=== PATIENT | male | born 1955 | race Caucasian/White ===

== ENCOUNTER 2019-08-14 02:42 | Inpatient (IN) | payer OTHER, SELFPAY ==
[2019-08-14] VITALS (9 sets, daily range): BP systolic 124–167; BP diastolic 85–105; PULSE 58–74; RESP 17–22; TEMP 36.3–37.2; O2SAT 91–98; BMI 33.3; BMI 33.0; BMI 33.1
--- NOTE | 2019-08-14 02:55 | CT_ITS ---
STUDY: CT ABDOMEN AND PELVIS WITH CONTRAST REASON FOR EXAM: Male, 63 years old patient with abdominal pain since 1900 with elevated WBC and nausea. Patient has had a left nephrectomy as a kidney donor. RADIATION DOSAGE (If Supplied By Facility): CTDIvol = ( 17.56 ) mGy, DLP = ( 1189.45 ) mGycm TECHNIQUE: Transaxial images were obtained from the dome of the diaphragm to the symphysis pubis without oral contrast. 75 ml of IV Isovue-370 was administered. Sagittal and coronal images were reconstructed. Individualized dose optimization techniques were used for this CT. COMPARISON: Prior comparison studies are not available for review at this time. FINDINGS: The visualized lung bases are unremarkable. The visualized portions of the heart are within normal limits. Normal liver. There are surgical clips in the gallbladder fossa consistent with a prior cholecystectomy. Normal spleen. Normal pancreas. Normal bilateral adrenal glands. Normal right kidney. Left kidney is surgically absent. Normal visualized stomach. There is dilated small bowel with maximum transverse dimension of approximately 3.3 cm. Stool is visible throughout most of the colon with scattered diverticula. There appears be some abnormal thickening of the griffin of the mid and distal transverse colon as well as the splenic flexure the colon. This may be the result of a colitis. The appendix is visualized and appears normal. Normal abdominal aorta. Normal inferior vena cava. Normal retroperitoneum. Normal urinary bladder. There is enlargement of the prostate gland. Normal abdominal wall. Normal osseous structures. CT/Abdomen/Pelvis W IV Cont ONLY IMPRESSION: 1. Findings suggests small bowel obstruction. Transition occurs within the proximal small bowel. This may be related to an adhesion. The mid and distal small bowel and colon are not dilated. 2. Questionable sequela of colitis involving the transverse colon. Electronically Signed: Rosa Charles MD at 4:13 EDT , Service support ,
--- NOTE | 2019-08-14 02:58 | ED.DCSUM_ITS ---
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 Patient states that around 7:00 this past evening he developed periumbilical and left lower quadrant abdominal pain. Associated nausea. No diarrhea. No constipation. No dysuria. No trouble urinating. No prior history. No abdominal trauma. No fever. No melena. No radiation to his back. Physical Examination: Older male no acute distress vital signs are stable and afebrile. H EENT exam unremarkable. Moist membranes. Neck nontender. Lungs clear to auscultation bilaterally. Heart regular rhythm rate about 70 no murmur. Chest were nontender. Abdomen soft. Mildly distended. Periumbilical and left lower quadrant tenderness. No pulsatile mass. No masses. Positive bowel sounds. Both the right upper and right lower quadrant unremarkable. No hernias or masses. He is moving all 4 extremities. Calves are nontender without edema. Back nontender. Neurologically is awake and alert with no focal motor deficits. Test Results: CBC shows a white count 13. Hemoglobin 17. No bands. Chemistries unremarkable gap of 6. BUN of 19 creatinine 1.43. Liver enzymes normal. Lipase normal. UA normal. No signs of infection. CAT scan done with IV contrast of the abdomen pelvis read by the radiologist and reviewed by me shows dilated small bowel consistent with small bowel obstruction. There is also colitis of the transverse colon. Prior cholecystectomy. The bowel obstruction may be secondary to adhesion. Emergency Department Course and Treatment: 63-year-old male prior nephrectomy and cholecystectomy. Complaining of periumbilical abdominal pain. This could be secondary to diverticulitis, versus a bowel obstruction versus other etiologies. Patient be treated with IV fluids, Zofran and morphine. A lab and CAT scan will be obtained. Treatment Plan: Repeat exam patient is doing well at 4:39 AM. He will be given another dose of morphine. Of the hospitalist on page for admission. Disposition: Admission Impression: Acute abdominal pain secondary to small bowel obstruction History of diabetes History of prior nephrectomy and cholecystectomy This note was generated with [employer] dictation software. It may contain incorrect words, spelling, and punctuation that were not noted in review of the chart prior to signing ED Disposition - Plan for ED Patient: Referrals: Niko Li MD [Primary Care Provider] -
[2019-08-14 03:06] LABS: Absolute Neutrophil Count 11.2 X10^3/uL (2.0-7.7); Basophil# 0.06 X10^3/uL; Basophil% 0.5 % (0-1); Eosinophil# 0.04 X10^3/uL; Eosinophils% 0.3 % (0-5); Hematocrit 51.2 % (40-54); Lymphocyte % 8.3 % (19-41); Mean Corp Hgb Conc 33.2 g/dL (32-36); Mean Corpuscular Hgb 29.1 pg (27.0-32.0); Mean Corpuscular Volume 87.5 fL (80-94); Mean Platelet Vol. 8.5 fl (6.2-12.0); Monocyte# 0.83 X10^3/uL; Monocyte% 6.3 % (0-10); NRBC Flagged by Analyzer 0 % (0-5); Neutrophil # 11.18 X10^3/uL (2.7-7.7); Neutrophil % 84.4 % (47-70); Platelet Count 339 K/mm3 (150-450); RBC Distribution Width CV 11.9 % (11.6-14.6); RBC Distribution Width SD 38.5 fl (35.1-43.9); Red Blood Count 5.85 M/mm3 (4.6-6.2); White Blood Count 13.2 K/mm3 (4.4-11.0)
[2019-08-14] MEDS: 0.9% Normal Saline 1,000 ML 999 ML IV (03:11)
[2019-08-14] MEDS: morphine 8 MG/ML Syringe 6 MG IV ×2 (03:12→05:05)
[2019-08-14] MEDS: Ondansetron 4 MG/2 ML Vial IV (03:12)
[2019-08-14 03:18] LABS: Bacteria 0 SEEN /hpf (None Seen); Mucous, Urine 0 SEEN /hpf (<or=2+); Squamous Epithelial Cells - UA 0 SEEN /hpf (0-5); White Blood Cells 0 SEEN /hpf (0-5)
[2019-08-14 03:20] LABS: AST(SGOT) 16 U/L (15-37); Alanine Aminotransfer ALT/SGPT 39 U/L (16-61); Albumin, Serum 3.9 g/dL (3.2-5.0); Alkaline Phosphatase 72 U/L (45-117); Anion Gap 6 (5-15); BUN 19 mg/dL (7-18); BUN/Creat Ratio 13.3 RATIO (10-20); Bilirubin, Direct 0.13 mg/dL (0.00-0.30); Calcium,Total 9.4 mg/dL (8.5-10.1); Chloride 108 mmol/L (98-107); Creatinine, Serum 1.43 mg/dL (0.70-1.30); EST Glomerular Filtration Rate 53 mL/min (>60); Est Glom Filt Rate - Afr Amer 65 mL/min (>60); Estimated Creatinine Clearance 56.01 ml/min; Globulin 4.6 g/dL (2.2-4.2); Glucose 196 mg/dL (74-106); Lipase 82 U/L (73-393); Potassium 4.2 mmol/L (3.5-5.1); Protein, Total 8.5 g/dL (6.4-8.2); Sodium Level 139 mmol/L (136-145)
[2019-08-14 03:46] LABS: Color, Urine Yellow (Yellow); Glucose, Dipstick Normal (Normal); Ketone-Dipstick Negative (Negative); Leukocyte Esterase-Dipstick Negative /ul (Negative); Nitrite-Dipstick Negative (Negative); Occult Blood-Urine 10 /ul (Negative); Protein-Dipstick 100 mg/dl (Negative); Specific Gravity, Urine 1.025 (1.002-1.030); Urine Bilirubin Dipstick Negative (Negative); Urine Clarity Clear (Clear); Urine Urobilinogen 4 mg/dl (Normal)
[2019-08-14 03:55] LABS: Red Blood Cells-Urine 0-5 SEEN /hpf (0-5)
--- NOTE | 2019-08-14 04:41 | PCM.HP.STD ---
Problem List (1) SBO (small bowel obstruction) Status: Acute (2) Diabetes mellitus, type II Status: Chronic Qualifiers: Diabetes mellitus residential insulin use: without residential use Diabetes mellitus complication status: with other specified complication Qualified Code(s): E11.69 - Type 2 diabetes mellitus with other specified complication (3) Elevated BP without diagnosis of hypertension Status: Acute (4) Psoriatic arthritis Status: Chronic (5) Chronic kidney disease, stage III (moderate) Status: Chronic History of Present Illness Date of Admission: 08/14/19 Chief Complaint: Abdominal pain, nausea The patient is a 63 y/o M w/ PMHx: ? CKD stage III, Diabetes mellitus type II, History of unilateral nephrectomy for donation, Psoriatic Arthritis who presents to the [facility] ED on 08/14/19 with history of onset periumbilical and left lower quadrant abdominal pain starting approximately 7 PM the evening prior with associated nausea without emesis but notes dry heaving x 1 with abdominal distention with last bowel movement noted on 08/13/19; however, small and pencil thin at ~ 8:30 pm following pain onset, rated more dull aching/cramping, 3-5/10 in severity with no associated fevers or chills prompting eventual ED presentation given no improvement. Work-up in the ED included T 97.4, heart rate 73, BP 167/105, respiratory rate 2, 97% on room air, CBC with WC 13.2, hemoglobin 17, platelet 339 with left shift, CMP with chloride 108, BUN/creatinine 19/1.43, glucose 196, lipase 82, urinalysis with evidence of dehydration with elevated specific gravity 1.025 otherwise not market appearing, CT abdomen pelvis with findings suggestive of small bowel obstruction with a transition occurring within the proximal small bowel possibly related to an adhesion, mid and distal small bowel and colon are not dilated, questionable sequelae of colitis involving the transverse colon. In the ED patient administered normal saline, Zofran, morphine therapy. Past Medical History Past Medical History (Chronic Problems): Chronic Problems Diabetes mellitus, type II (Chronic) Psoriatic arthritis (Chronic) Chronic kidney disease, stage III (moderate) (Chronic) Allergies No Known Allergies Allergy (Verified 08/14/19 02:48) Home Medications: Ambulatory Orders Medication Instructions Recorded Secukinumab [Cosentyx Syringe] 1 injectable SQ QMONTH 03/15/20 metFORMIN (XR) [Glucophage Xr] 500 mg PO BID 08/14/19 Surgical History: cholecystectomy, - - L Unilateral nephrectomy, donation. Psychiatric History: No pertinent psych hx Lives: Alone Smoking Status: Never smoker Tobacco Use: Non-smoker Alcohol: Occasional Drugs: None - *Family History Maternal History Items: Cancer Paternal History Items: Heart Disease Review of Systems Constitutional: Reports: Anorexia, Malaise, Weakness, Fatigue. Denies: Chills, Fever, Weight Change HEENT: Denies: Head Aches, Sinus Congestion, Sinus Drainage Cardiovascular: Denies: Chest Pain, Palpitations Respiratory: Denies: Cough, Shortness of breath at rest, Sputum production Gastrointestinal: Reports: Abdominal Pain, Nausea, Vomiting Genitourinary: Denies: Dysuria Musculoskeletal: Reports: Joint Pain. Denies: Joint Tenderness Skin: Denies: Rash, Wounds Neurological: Denies: Numbness, Tingling, Focal weakness Psychiatric: Denies: Anxiety, Depression, Homicidal Ideations, Suicidal Ideations Hematologic/ Lymphatic: Denies: Easy Bruising, Easy Bleeding VTE Information - Inpt Only VTE Present on Admission: No VTE Mechan Device Prophylaxis: SCD's VTE Pharm Prophylaxis ordered?: Yes Patient Problems: Active and Suspected Problems SBO (small bowel obstruction) (Acute) Elevated BP without diagnosis of hypertension (Acute) Subjective: Seated upright in the ED bed, fatigued appearance, notes discomfort has improved with pain medicine but ongoing still and still feels distended. Objective: Physical Examination: General: awake, alert, oriented x 3 and cooperative, seated upright in the ED bed, fatigued appearance, no acute distress. Skin: normal color, turgor, no icterus, cyanosis. HEENT: AT/NC, EOMI, PERRLA, dry MM, no carotid bruits or JVD noted. Lungs: CTA bilaterally, moderate effort, mild decrease BL bases, no rales, ronchi or wheezing. Heart: Regular rate and rhythm; no gallop, rub audible. Abdomen: soft, discomfort to periumbilical and primarily left lower quadrant palpation, no guarding or rebound specifically, moderately distended, absent bowel sounds, no obvious HSM. Extremities: no cyanosis, clubbing, or edema. Neurological: patient awake, alert, oriented x 3; cognitive function intact; pupils equally reactive to light and accomodation; cranial nerves II-XII grossly normal, moving all 4 extremities, no focal deficits, strength mildly to moderately global decrease secondary to acute presentation. Psychiatric: affect appears fatigued, no acute evidence of depressive or anxiety feelings. - Physical Exam Vitals/I&O's: Vital Signs Temp Pulse Resp BP Pulse Ox 97.4 F L 73 22 H 167/105 H 97 08/14/19 02:43 08/14/19 02:43 08/14/19 02:43 08/14/19 02:43 08/14/19 02:43 Oxygen Delivery Method Room Air Weight: 232 lb 5.875 oz Body Mass Index (BMI) 33.3 Intake and Output for Last 24 Hours 08/12/19 08/13/19 08/14/19 23:59 23:59 23:59 Intake Total 1000 / 1000 Balance 1000 / 1000 Laboratory Results 08/14/19 02:55: WBC 13.2 H, RBC 5.85, Hgb 17.0 H, Hct 51.2, MCV 87.5, MCH 29.1, MCHC 33.2, RDW Std Deviation 38.5, RDW Coeff of [place]iral[place] 11.9, Plt Count 339, MPV 8.5, Immature Gran % (Auto) 0.200, Neut % (Auto) 84.4 H, Lymph % (Auto) 8.3 L, [place] % (Auto) 6.3, Eos % (Auto) 0.3, Baso % (Auto) 0.5, Absolute Neuts (auto) 11.2 H, Absolute Lymphs (auto) 1.10, Nucleated RBC % 0 08/14/19 02:55: Sodium 139, Potassium 4.2, Chloride 108 H, Carbon Dioxide 25.0, Anion Gap 6, BUN 19 H, Creatinine 1.43 H, Estim Creat Clear Calc 56.01, Est GFR (MDRD) Af Amer 65, Est GFR (MDRD) Non-Af 53 L, BUN/Creatinine Ratio 13.3, Glucose 196 H, Calcium 9.4, Total Bilirubin 0.50, Direct Bilirubin 0.13, AST 16, ALT 39, Alkaline Phosphatase 72, Total Protein 8.5 H, Albumin 3.9, Globulin 4.6 H, Lipase 82 08/14/19 03:10: Urine Color Yellow, Urine Clarity Clear, Urine pH 6.0, Ur Specific [place] 1.025, Urine Protein 100 H, Urine Glucose (UA) Normal, Urine Ketones Negative, Urine Occult Blood 10 H, Urine Nitrite Negative, Urine Bilirubin Negative, Urine Urobilinogen 4 H, Ur Leukocyte Esterase Negative, Urine RBC 0-5 SEEN, Urine WBC 0 SEEN, Ur Squamous Epith Cells 0 SEEN, Urine Bacteria 0 SEEN, Urine Mucus 0 SEEN Assessment/Plan All Active Problems SBO (small bowel obstruction) (Acute) Elevated BP without diagnosis of hypertension (Acute) The patient is a 63 y/o M w/ PMHx: ? CKD stage III, Diabetes mellitus type II, History of unilateral nephrectomy for donation, Psoriatic Arthritis who presents to the [facility] ED on 08/14/19 with history of onset periumbilical and left lower quadrant abdominal pain starting approximately 7 PM the evening prior with associated nausea without emesis with no recent change in bowel or bladder with no associated fevers or chills prompting eventual ED presentation given no improvement. 1. Abdominal pain, nausea, emesis w/ SBO with ? Colitis: Will admit to the medical surgical floor, maintain on IVFs, continue NGT to suction, strict I&Os, IV pain/anti-emetics PRN, serial KUB as needed to montior bowel function, Famotidine IV, IV Zosyn given ? colitis but de-escalate off as able given lower suspicion, maintain NPO on bowel rest. General surgery consulted, pending. 2. Chronic Kidney Disease Stage III s/p Unilateral Nephrectomy Donation: Admission BUN/Cr 19/1.43, baseline renal function unknown but suspect likely chronic component, repeat BMP in AM. 3. Elevated BP without hypertensive diagnosis: Significantly elevated BP upon presentation, 167/105, likely associated with pain, continue to monitor and if appropriate add oral regimen, PRN IV hydralazine in interim. 4. Diabetes mellitus type II: Hold oral home regimen, maintain n.p.o. status, Accu checks w/ ISS. 5. GERD: Maintained on IV famotidine while n.p.o. status. 6. Psoriatic arthritis: We will hold patient monoclonal antibody. 7. DVT prophylaxis: SCDs, Lovenox.
--- NOTE | 2019-08-14 05:26 | RAD_ITS ---
STUDY: X-RAY - ABDOMEN/PELVIS REASON FOR EXAM: Male, 63 years old patient presents for evaluation after nasogastric tube placement. TECHNIQUE: Single AP view of the abdomen / pelvis. COMPARISON: CT of the abdomen and pelvis dated August 14, 2019. FINDINGS: Normal visualized lung bases. The visualized heart is mildly enlarged. There is an unremarkable bowel gas pattern. The tip of enteric tube is located in left upper quadrant. There is no obvious organomegaly, mass or pathologic calcifications. Surgical clips are visible in the right upper quadrant. Normal soft tissue structures. Normal visualized osseous structures. RAD/Abdomen Single View (Portable) IMPRESSION: Appropriate positioning of enteric tube. Electronically Signed: Rosa Charles MD at 6:30 EDT , Service support ,
[2019-08-14] MEDS: 0.9% Normal Saline 1,000 ML 125 ML IV ×3 (06:21→22:13)
[2019-08-14] MEDS: Famotidine 200 MG/20 ML MDV 20 MG in 0.9% Normal Saline (Pres. free 8 ML 300 MG IV ×2 (06:29→22:11)
[2019-08-14] MEDS: 0.9% Saline Lock 10 ML Syringe IV (06:32)
[2019-08-14] MEDS: Phenol/Sodium Phenolate 180ML 5 SPRAY MM (07:04)
[2019-08-14 07:06] LABS: Bedside Glucose 149 mg/dL (70-110)
--- NOTE | 2019-08-14 09:42 | CON.PCM_ITS ---
Problem List (1) SBO (small bowel obstruction) Status: Acute Reason for Consult Date of Consultation: 08/14/19 History of Present Illness: The patient is a 63 y/o M w/ PMHx: ? CKD stage III, Diabetes mellitus type II, History of unilateral nephrectomy for donation, Psoriatic Arthritis who presents to the [facility] ED on 08/14/19 with history of onset periumbilical and left lower quadrant abdominal pain starting approximately 7 PM the evening prior with associated nausea without emesis but notes dry heaving x 1 with abdominal distention with last bowel movement noted on 08/13/19; however, small and pencil thin at ~ 8:30 pm following pain onset, rated more dull aching/cramping, 3-5/10 in severity with no associated fevers or chills prompting eventual ED presentation given no improvement. Work-up in the ED included T 97.4, heart rate 73, BP 167/105, respiratory rate 2, 97% on room air, CBC with WC 13.2, hemoglobin 17, platelet 339 with left shift, CMP with chloride 108, BUN/creatinine 19/1.43, glucose 196, lipase 82, urinalysis with evidence of dehydration with elevated specific gravity 1.025 otherwise not market appearing, CT abdomen pelvis with findings suggestive of small bowel obstruction with a transition occurring within the proximal small bowel possibly related to an adhesion, mid and distal small bowel and colon are not dilated, questionable sequelae of colitis involving the transverse colon. In the ED patient administered normal saline, Zofran, morphine therapy. Past Medical History Past Medical History (Chronic Problems): Chronic Problems Diabetes mellitus, type II (Chronic) Psoriatic arthritis (Chronic) Chronic kidney disease, stage III (moderate) (Chronic) Allergies No Known Allergies Allergy (Verified 08/14/19 02:48) Home Medications: Ambulatory Orders Medication Instructions Recorded Secukinumab [Cosentyx Syringe] 1 injectable SQ QMONTH 08/14/19 metFORMIN (XR) [Glucophage Xr] 500 mg PO BID 08/14/19 Surgical History: cholecystectomy, - - L Unilateral nephrectomy, donation. Psychiatric History: No pertinent psych hx Lives: Alone Smoking Status: Never smoker Tobacco Use: Non-smoker Alcohol: Occasional Drugs: None - *Family History Maternal History Items: Cancer Paternal History Items: Heart Disease Review of Systems Constitutional: Denies: Chills, Fever Cardiovascular: Denies: Chest Pain, Chest Pressure, Chest Tightness, Palpitations Respiratory: Denies: Cough, Hemoptysis, Shortness of breath at rest, Shortness of breath upon exertion, Wheezing Gastrointestinal: Reports: Abdominal Pain. Denies: Vomiting Genitourinary: Denies: Dysuria, Frequency, Hematuria, Urgency Musculoskeletal: Denies: Joint Pain Patient Problems: Active and Suspected Problems SBO (small bowel obstruction) (Acute) Elevated BP without diagnosis of hypertension (Acute) - Physical Exam Vitals/I&O's: Vital Signs Temp Pulse Resp BP Pulse Ox 98.2 F 67 18 131/87 H 94 08/14/19 05:46 08/14/19 05:46 08/14/19 06:15 08/14/19 05:46 08/14/19 07:45 Oxygen Delivery Method Room Air Weight: 231 lb 0.711 oz Body Mass Index (BMI) 33.0 Intake and Output for Last 24 Hours 08/12/19 08/13/19 08/14/19 23:59 23:59 23:59 Intake Total 1010 / 1010 Balance 1010 / 1010 General: Alert, Oriented x3 Lungs: Clear to auscultation Cardiovascular: Regular rate, Regular Rhythm, No murmurs Abdomen: Bowel Sounds Present, Soft, Non Tender, Non-Distended Extremities: No clubbing, No cyanosis, No edema Laboratory Results 08/14/19 02:55: WBC 13.2 H, RBC 5.85, Hgb 17.0 H, Hct 51.2, MCV 87.5, MCH 29.1, MCHC 33.2, RDW Std Deviation 38.5, RDW Coeff of Nirali 11.9, Plt Count 339, MPV 8.5, Immature Gran % (Auto) 0.200, Neut % (Auto) 84.4 H, Lymph % (Auto) 8.3 L, [place] % (Auto) 6.3, Eos % (Auto) 0.3, Baso % (Auto) 0.5, Absolute Neuts (auto) 11.2 H, Absolute Lymphs (auto) 1.10, Nucleated RBC % 0 08/14/19 02:55: Sodium 139, Potassium 4.2, Chloride 108 H, Carbon Dioxide 25.0, Anion Gap 6, BUN 19 H, Creatinine 1.43 H, Estim Creat Clear Calc 56.01, Est GFR (MDRD) Af Amer 65, Est GFR (MDRD) Non-Af 53 L, BUN/Creatinine Ratio 13.3, Gluco se 196 H, Calcium 9.4, Total Bilirubin 0.50, Direct Bilirubin 0.13, AST 16, ALT 39, Alkaline Phosphatase 72, Total Protein 8.5 H, Albumin 3.9, Globulin 4.6 H, Lipase 82 08/14/19 03:10: Urine Color Yellow, Urine Clarity Clear, Urine pH 6.0, Ur Specific [place] 1.025, Urine Protein 100 H, Urine Glucose (UA) Normal, Urine Ketones Negative, Urine Occult Blood 10 H, Urine Nitrite Negative, Urine Bilirubin Negative, Urine Urobilinogen 4 H, Ur Leukocyte Esterase Negative, Urine RBC 0-5 SEEN, Urine WBC 0 SEEN, Ur Squamous Epith Cells 0 SEEN, Urine Bacteria 0 SEEN, Urine Mucus 0 SEEN 08/14/19 06:34: POC Glucose 149 H Current Medications Acetaminophen (Tylenol) 650 mg RECTAL Q4H PRN PRN PRN Reason: Pain Score 1-10/Temp > 100.7 F Albuterol Sulfate (Ventolin Aerosols) 2.5 mg INHALATION Q2H PRN PRN PRN Reason: Shortness of Breath/Wheezing Enoxaparin Sodium (Lovenox) 40 mg SC DAILY YAW Glucagon () 1 mg IM .X1 PRN PRN Reason: Hypoglycemia Hydromorphone HCl (Dilaudid Inj) 0.5 mg IV Q4H PRN PRN PRN Reason: Pain Score 6-10/10 Sodium Chloride () 1,000 mls @ 125 mls/hr IV .Q8H [facility] Last Admin: 08/14/19 06:21 Dose: 125 mls/hr Documented by: Piperacillin Sod/Tazobactam (Sod 3.375 gm/ Sodium Chloride) 50 mls @ 12.5 mls/hr IV Q8 [facility] Last Admin: 08/14/19 06:34 Dose: 12.5 mls/hr Documented by: Dextrose (Dextrose 10%-Water) 250 mls @ 999 mls/hr IV .Q16M PRN; Protocol PRN Reason: HYPOGLYCEMIA Sodium Chloride () 250 mls @ 15 mls/hr IV .[id number] PRN PRN Reason: Additional IVPB Infusion Famotidine 20 mg/ Sodium (Chloride) 10 mls @ 300 mls/hr IV Q12 YAW Last Infusion: 08/14/19 06:32 Dose: Infused Documented by: Insulin Human Lispro (Humalog Kwikpen (Bkc)) 0 unit SC Q6 YAW; Protocol Last Admin: 08/14/19 06:35 Dose: Not Given Documented by: Ondansetron HCl (Zofran) 4 mg IV Q8H PRN PRN PRN Reason: NAUSEA/VOMITING Phenol/Menthol (Chloraseptic (Bkc)) 5 spray MM Q2H PRN PRN PRN Reason: SORE THROAT Last Admin: 08/14/19 07:04 Dose: 5 spray Documented by: Prochlorperazine Edisylate (Compazine Iv) 5 mg IV Q4H PRN PRN PRN Reason: Breakthrough nausea/vomiting Sodium Chloride () 10 - 40 ml IV UD PRN PRN Reason: SALINE FLUSH Last Admin: 08/14/19 06:32 Dose: 10 ml Documented by: Assessment/Plan All Active Problems SBO (small bowel obstruction) (Acute) Elevated BP without diagnosis of hypertension (Acute) At this point his abdomen is extremely soft. I anticipate that he should resolve with conservative management. Once he starts passing flatus we can remove his NG tube.
--- NOTE | 2019-08-14 09:59 | PN_ITS ---
Patient Problems: Active and Suspected Problems SBO (small bowel obstruction) (Acute) Elevated BP without diagnosis of hypertension (Acute) Subjective: Patient seen and examined. He was admitted with a complaint of abdominal pain. He has been managed for small bowel obstruction. He is currently n.p.o. and has an NG tube in place. Patient seen this morning. Abdominal pain is improved with pain meds. He states he is not passing any gas. He denies any fever, chills, nausea vomiting or having any bowel movements. Review of symptoms otherwise negative. Vitals/I&O's: Vital Signs Temp Pulse Resp BP Pulse Ox 98.2 F 67 18 131/87 H 94 08/14/19 05:46 08/14/19 05:46 08/14/19 06:15 08/14/19 05:46 08/14/19 07:45 Oxygen Delivery Method Room Air Weight: 231 lb 0.711 oz Body Mass Index (BMI) 33.0 Intake and Output for Last 24 Hours 08/12/19 08/13/19 08/14/19 23:59 23:59 23:59 Intake Total 1010 / 1010 Balance 1010 / 1010 General: Alert, Oriented x3, Cooperative, No apparent distress HEENT: Atraumatic, PERRLA, EOMI, Normocephalic, - - NG tube in place Oral: Dry Mucosa Neck: Supple, No JVD, Negative Carotid Bruits Lungs: Clear to auscultation, Normal air movement, No rhonchi, No wheeze, No rales Cardiovascular: Regular rate, Regular Rhythm, Normal S1, Normal S2, No murmurs Abdomen: Bowel Sounds Present, Soft, Non Tender, Non-Distended, No Hepato- splenomegaly, - Extremities: No clubbing, No cyanosis, No edema, Capillary Refill Less than 3 Seconds Skin: No rashes, No breakdown Musculoskeletal: No Tenderness to Palpation of Joints or Extremities Lymphatic: No Cervical, Supraclavicular, or Inguinal Adenopathy Neurological: Cranial nerves II-XII grossly intact, Neuro grossly intact, Motor Exam 5/5 strength throughout Psych/Mental Status: Normal Affect, Appropriate, Alert and oriented to time, place, person, mood and affect Laboratory Results 08/14/19 02:55: WBC 13.2 H, RBC 5.85, Hgb 17.0 H, Hct 51.2, MCV 87.5, MCH 29.1, MCHC 33.2, RDW Std Deviation 38.5, RDW Coeff of Nirali 11.9, Plt Count 339, MPV 8.5, Immature Gran % (Auto) 0.200, Neut % (Auto) 84.4 H, Lymph % (Auto) 8.3 L, [place] % (Auto) 6.3, Eos % (Auto) 0.3, Baso % (Auto) 0.5, Absolute Neuts (auto) 11.2 H, Absolute Lymphs (auto) 1.10, Nucleated RBC % 0 08/14/19 02:55: Sodium 139, Potassium 4.2, Chloride 108 H, Carbon Dioxide 25.0, Anion Gap 6, BUN 19 H, Creatinine 1.43 H, Estim Creat Clear Calc 56.01, Est GFR (MDRD) Af Amer 65, Est GFR (MDRD) Non-Af 53 L, BUN/Creatinine Ratio 13.3, Glucose 196 H, Calcium 9.4, Total Bilirubin 0.50, Direct Bilirubin 0.13, AST 16, ALT 39, Alkaline Phosphatase 72, Total Protein 8.5 H, Albumin 3.9, Globulin 4.6 H, Lipase 82 08/14/19 03:10: Urine Color Yellow, Urine Clarity Clear, Urine pH 6.0, Ur Specific [place] 1.025, Urine Protein 100 H, Urine Glucose (UA) Normal, Urine Ketones Negative, Urine Occult Blood 10 H, Urine Nitrite Negative, Urine Bilirubin Negative, Urine Urobilinogen 4 H, Ur Leukocyte Esterase Negative, Urine RBC 0-5 SEEN, Urine WBC 0 SEEN, Ur Squamous Epith Cells 0 SEEN, Urine Bacteria 0 SEEN, Urine Mucus 0 SEEN 08/14/19 06:34: POC Glucose 149 H Diagnostic Data Abdomen/Pelvis CT 08/14/19 02:55 IMPRESSION: 1. Findings suggests small bowel obstruction. Transition occurs within the proximal small bowel. This may be related to an adhesion. The mid and distal small bowel and colon are not dilated. 2. Questionable sequela of colitis involving the transverse colon. Electronically Signed: Rosa Charles MD at 4:13 EDT , Service support , KUB X-Ray 08/14/19 05:26 IMPRESSION: Appropriate positioning of enteric tube. Electronically Signed: Rosa Charles MD at 6:30 EDT , Service support , Current Medications Acetaminophen (Tylenol) 650 mg RECTAL Q4H PRN PRN PRN Reason: Pain Score 1-10/Temp > 100.7 F Albuterol Sulfate (Ventolin Aerosols) 2.5 mg INHALATION Q2H PRN PRN PRN Reason: Shortness of Breath/Wheezing Enoxaparin Sodium (Lovenox) 40 mg SC DAILY YAW Glucagon () 1 mg IM .X1 PRN PRN Reason: Hypoglycemia Hydromorphone HCl (Dilaudid Inj) 0.5 mg IV Q4H PRN PRN PRN Reason: Pain Score 6-10/10 Sodium Chloride () 1,000 mls @ 125 mls/hr IV .Q8H YAW Last Admin: 08/14/19 06:21 Dose: 125 mls/hr Documented by: Piperacillin Sod/Tazobactam (Sod 3.375 gm/ Sodium Chloride) 50 mls @ 12.5 mls/hr IV Q8 YAW Last Admin: 08/14/19 06:34 Dose: 12.5 mls/hr Documented by: Dextrose (Dextrose 10%-Water) 250 mls @ 999 mls/hr IV .Q16M PRN; Protocol PRN Reason: HYPOGLYCEMIA Sodium Chloride () 250 mls @ 15 mls/hr IV .[id number] PRN PRN Reason: Additional IVPB Infusion Famotidine 20 mg/ Sodium (Chloride) 10 mls @ 300 mls/hr IV Q12 [facility] Last Infusion: 08/14/19 06:32 Dose: Infused Documented by: Insulin Human Lispro (Humalog Kwikpen (Bkc)) 0 unit SC Q6 YAW; Protocol Last Admin: 08/14/19 06:35 Dose: Not Given Documented by: Ondansetron HCl (Zofran) 4 mg IV Q8H PRN PRN PRN Reason: NAUSEA/VOMITING Phenol/Menthol (Chloraseptic (Bkc)) 5 spray MM Q2H PRN PRN PRN Reason: SORE THROAT Last Admin: 08/14/19 07:04 Dose: 5 spray Documented by: Prochlorperazine Edisylate (Compazine Iv) 5 mg IV Q4H PRN PRN PRN Reason: Breakthrough nausea/vomiting Sodium Chloride () 10 - 40 ml IV UD PRN PRN Reason: SALINE FLUSH Last Admin: 08/14/19 06:32 Dose: 10 ml Documented by: STROKE Vital Signs/Narrative: Vital Signs Resp Pulse Ox 08/14/19 07:45 94 08/14/19 06:15 18 Medical Necessity - Tobacco Use Smoking Status: Never smoker Tobacco Use: Non-smoker Assessment/Plan All Active Problems SBO (small bowel obstruction) (Acute) Elevated BP without diagnosis of hypertension (Acute) 1. Small bowel obstruction * feels better today. still not passed flatus * general surgery on board * continue keeping NPO * per general surgery, for conservative management now. One he starts passing flatus, NG tube to be removed. * continue hydrating with IVF * 2. 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 * 1.43 on admission. * Being hydrated with IV fluids. Baseline unknown. * trend Cr * 3. Elevated BP: no previous diabnosis of hypertension. BP now 135/89. Will continue monitoring. Not on any BP meds 4. Type 2 diabetes mellitus: metformin on hold. ISS. Accuchecks ACHS. 5. GERD: On IV famotidine. 6. History of psoriatic arthritis: Cosentyx is currently on hold. * DVT prophylaxis: lovenox Inpatient E&M: [id number] [facility] Hosp L2
[2019-08-14 11:36] LABS: Bedside Glucose 203 mg/dL (70-110)
[2019-08-14 18:11] LABS: Bedside Glucose 82 mg/dL (70-110)
[2019-08-15 00:01] LABS: Bedside Glucose 109 mg/dL (70-110)
[2019-08-15 02:20] VITALS: BP 149/88; PULSE 65; RESP 18; TEMP 36.9; O2SAT 94
[2019-08-15 05:36] LABS: Absolute Lymphocyte Count 2.03 X10^3/uL (0.83-4.51); Absolute Neutrophil Count 5.8 X10^3/uL (2.0-7.7); Basophil# 0.06 X10^3/uL; Basophil% 0.7 % (0-1); Eosinophil# 0.37 X10^3/uL; Hemoglobin 14.4 g/dL (13.0-16.5); Lymphocyte # 2.03 X10^3/ul (4.0); Mean Corpuscular Hgb 28.9 pg (27.0-32.0); Mean Corpuscular Volume 90.2 fL (80-94); Mean Platelet Vol. 8.6 fl (6.2-12.0); Monocyte% 9.8 % (0-10); NRBC Flagged by Analyzer 0 % (0-5); Neutrophil # 5.83 X10^3/uL (2.7-7.7); Neutrophil % 63.2 % (47-70); Platelet Count 271 K/mm3 (150-450); RBC Distribution Width CV 12.2 % (11.6-14.6); Red Blood Count 4.99 M/mm3 (4.6-6.2); White Blood Count 9.2 K/mm3 (4.4-11.0)
[2019-08-15 05:57] LABS: Anion Gap 5 (5-15); BUN 15 mg/dL (7-18); BUN/Creat Ratio 10.9 RATIO (10-20); Calcium,Total 8.1 mg/dL (8.5-10.1); Chloride 111 mmol/L (98-107); Creatinine, Serum 1.37 mg/dL (0.70-1.30); EST Glomerular Filtration Rate 56 mL/min (>60); Est Glom Filt Rate - Afr Amer 68 mL/min (>60); Estimated Creatinine Clearance 58.47 ml/min; Glucose 111 mg/dL (74-106); Potassium 3.8 mmol/L (3.5-5.1); Sodium Level 141 mmol/L (136-145)
[2019-08-15] MEDS: Phenol/Sodium Phenolate 180ML 5 SPRAY MM (06:04)
[2019-08-15] MEDS: 0.9% Normal Saline 1,000 ML 125 ML IV (06:05)
[2019-08-15 06:16] LABS: Bedside Glucose 115 mg/dL (70-110)
[2019-08-15 07:28] VITALS: O2SAT 94
[2019-08-15 07:45] VITALS: BP 160/88; PULSE 60; RESP 16; TEMP 37.1; O2SAT 94
--- NOTE | 2019-08-15 07:47 | PCM.PN.HOSP ---
Patient Problems: Active and Suspected Problems SBO (small bowel obstruction) (Acute) Elevated BP without diagnosis of hypertension (Acute) Reason for Visit: Follow-up on SBO Subjective: Patient was seen and examined. Objective: Physical exam: General: Alert, Oriented x3, Cooperative, No apparent distress HEENT: Atraumatic, PERRLA, EOMI, Normocephalic Oral: Dry Mucosa Neck: Supple, No JVD, Negative Carotid Bruits Lungs: Clear to auscultation, Normal air movement, No rhonchi, No wheeze, No rales Cardiovascular: Regular rate, Regular Rhythm, Normal S1, Normal S2, No murmurs Abdomen: Bowel Sounds Present, Soft, Non Tender, Distended, No Hepato-splenomegaly Extremities: No clubbing, No cyanosis, No edema, Capillary Refill Less than 3 Seconds Skin: No rashes, No breakdown Musculoskeletal: No Tenderness to Palpation of Joints or Extremities Lymphatic: No Cervical, Supraclavicular, or Inguinal Adenopathy Neurological: Cranial nerves II-XII grossly intact, Neuro grossly intact, Motor Exam 5/5 strength throughout Psych/Mental Status: Normal Affect, Appropriate, Alert and oriented to time, place, person, mood and affect Vitals/I&O's: Vital Signs Temp Pulse Resp BP Pulse Ox 98.4 F 65 18 149/88 H 94 08/15/19 02:20 08/15/19 02:20 08/15/19 02:20 08/15/19 02:20 08/15/19 02:20 Oxygen Delivery Method Room Air Weight: 104.8 kg Body Mass Index (BMI) 33.0 Intake and Output for Last 24 Hours 08/13/19 08/14/19 08/15/19 23:59 23:59 23:59 Intake Total 3647.08 / 3647.08 1273.33 / 1273.33 Output Total 102 / 102 100 / 100 Balance 3545.08 / 3545.08 1173.33 / 1173.33 Laboratory Results 08/14/19 11:31: POC Glucose 203 H 08/14/19 17:59: POC Glucose 82 08/14/19 23:51: POC Glucose 109 08/15/19 05:02: WBC 9.2, RBC 4.99, Hgb 14.4, Hct 45.0, MCV 90.2, MCH 28.9, MCHC 32.0, RDW Std Deviation 40.0, RDW Coeff of Nirali 12.2, Plt Count 271, MPV 8.6, Immature Gran % (Auto) 0.300, Neut % (Auto) 63.2, Lymph % (Auto) 22.0, [place] % (Auto) 9.8, Eos % (Auto) 4.0, Baso % (Auto) 0.7, Absolute Neuts (auto) 5.8, Absolute Lymphs (auto) 2.03, Nucleated RBC % 0 08/15/19 05:02: Sodium 141, Potassium 3.8, Chloride 111 H, Carbon Dioxide 25.0, Anion Gap 5, BUN 15, Creatinine 1.37 H, Estim Creat Clear Calc 58.47, Est GFR (MDRD) Af Amer 68, Est GFR (MDRD) Non-Af 56 L, BUN/Creatinine Ratio 10.9, Glucose 111 H, Calcium 8.1 L 08/15/19 06:01: POC Glucose 115 H Current Medications Acetaminophen (Tylenol) 650 mg RECTAL Q4H PRN PRN PRN Reason: Pain Score 1-10/Temp > 100.7 F Albuterol Sulfate (Ventolin Aerosols) 2.5 mg INHALATION Q2H PRN PRN PRN Reason: Shortness of Breath/Wheezing Enoxaparin Sodium (Lovenox) 40 mg SC DAILY [facility] Last Admin: 08/14/19 10:18 Dose: Not Given Documented by: Glucagon () 1 mg IM .X1 PRN PRN Reason: Hypoglycemia Hydromorphone HCl (Dilaudid Inj) 0.5 mg IV Q4H PRN PRN PRN Reason: Pain Score 6-10/10 Sodium Chloride () 1,000 mls @ 125 mls/hr IV .Q8H [facility] Last Admin: 08/15/19 06:05 Dose: 125 mls/hr Documented by: Piperacillin Sod/Tazobactam (Sod 3.375 gm/ Sodium Chloride) 50 mls @ 12.5 mls/hr IV Q8 [facility] Last Admin: 08/15/19 06:04 Dose: 12.5 mls/hr Documented by: Dextrose (Dextrose 10%-Water) 250 mls @ 999 mls/hr IV .Q16M PRN; Protocol PRN Reason: HYPOGLYCEMIA Sodium Chloride () 250 mls @ 15 mls/hr IV .[id number] PRN PRN Reason: Additional IVPB Infusion Famotidine 20 mg/ Sodium (Chloride) 10 mls @ 300 mls/hr IV Q12 YAW Last Infusion: 08/14/19 22:13 Dose: Infused Documented by: Insulin Human Lispro (Humalog Kwikpen (Bkc)) 0 unit SC Q6 YAW; Protocol Last Admin: 08/15/19 06:06 Dose: Not Given Documented by: Ondansetron HCl (Zofran) 4 mg IV Q8H PRN PRN PRN Reason: NAUSEA/VOMITING Phenol/Menthol (Chloraseptic (Bkc)) 5 spray MM Q2H PRN PRN PRN Reason: SORE THROAT Last Admin: 08/15/19 06:04 Dose: 5 spray Documented by: Prochlorperazine Edisylate (Compazine Iv) 5 mg IV Q4H PRN PRN PRN Reason: Breakthrough nausea/vomiting Sodium Chloride () 10 - 40 ml IV UD PRN PRN Reason: SALINE FLUSH Last Admin: 08/14/19 06:32 Dose: 10 ml Documented by: Medical Necessity - Tobacco Use Smoking Status: Never smoker Tobacco Use: Non-smoker Assessment/Plan All Active Problems SBO (small bowel obstruction) (Acute) Elevated BP without diagnosis of hypertension (Acute) 1. Acute small bowel obstruction, s/p NG tube removal today, patient reports passing flatus, no bowel movements. KUB showed moderate amount of fecal matter in the colon. Colitis ruled out, on IV Zosyn Started on clear liquid diet by general surgery Will continue to monitor, encourage patient to ambulate Will discontinue antibiotics 2. CKD stage III, history of nephrectomy, creatinine improved to 1.37 from 1.43 3. Type II DM, metformin on hold, blood sugars controlled, continue with insulin sliding scale with blood glucose checks 4. Elevated blood pressure without hypertension diagnosis, Blood pressure has been fluctuating We will start patient on lisinopril 10 mg 5. GERD, on IV famotidine, will switch to po famotidine 6. H/o psoriasis, on Cosentyx, which has been held 7. DVT PPx- Lovenox SC Inpatient E&M: [id number] Subs Hosp L2
--- NOTE | 2019-08-15 08:15 | RAD_ITS ---
STUDY: X-RAY - ABDOMEN/PELVIS REASON FOR EXAM: Male, 63 years old. SBO, pain TECHNIQUE: AP supine and upright views of the abdomen and pelvis. COMPARISON: Comparison is made with prior study dated August 14, 2019. FINDINGS: The tip of the nasogastric tube is in the body of the stomach. There is an abundance of fecal material throughout the colon. There is no demonstrated free abdominal air. The patient is status post cholecystectomy. There are calcified phleboliths in the pelvis. There are diffuse degenerative changes of the visualized lumbar spine. RAD/Abd Inc Decub and/or Erect IMPRESSION: Moderate amount of fecal material is seen in the colon. Electronically Signed: Mookie Alvarenga, at 13:02 EDT , Service support ,
--- NOTE | 2019-08-15 09:21 | PCM.PN.SRG ---
Patient Problems: Active and Suspected Problems SBO (small bowel obstruction) (Acute) Elevated BP without diagnosis of hypertension (Acute) Subjective: Patient evaluated resting comfortably in bed. He denies nausea, vomiting. Positive flatus. Negative BM. He denies abdominal pain. - Physical Exam Vitals/I&O's: Vital Signs Temp Pulse Resp BP Pulse Ox 98.7 F 60 16 160/88 H 94 08/15/19 07:45 08/15/19 07:45 08/15/19 07:45 08/15/19 07:45 08/15/19 07:45 Oxygen Delivery Method Room Air Weight: 231 lb 0.711 oz Body Mass Index (BMI) 33.0 Intake and Output for Last 24 Hours 08/13/19 08/14/19 08/15/19 23:59 23:59 23:59 Intake Total 3647.08 / 3647.08 1273.33 / 1273.33 Output Total 102 / 102 100 / 100 Balance 3545.08 / 3545.08 1173.33 / 1173.33 General: Alert, Oriented x3, Cooperative Abdomen: Bowel Sounds Present, Soft, Non Tender Laboratory Results 08/14/19 11:31: POC Glucose 203 H 08/14/19 17:59: POC Glucose 82 08/14/19 23:51: POC Glucose 109 08/15/19 05:02: WBC 9.2, RBC 4.99, Hgb 14.4, Hct 45.0, MCV 90.2, MCH 28.9, MCHC 32.0, RDW Std Deviation 40.0, RDW Coeff of Nirali 12.2, Plt Count 271, MPV 8.6, Immature Gran % (Auto) 0.300, Neut % (Auto) 63.2, Lymph % (Auto) 22.0, [place] % (Auto) 9.8, Eos % (Auto) 4.0, Baso % (Auto) 0.7, Absolute Neuts (auto) 5.8, Absolute Lymphs (auto) 2.03, Nucleated RBC % 0 08/15/19 05:02: Sodium 141, Potassium 3.8, Chloride 111 H, Carbon Dioxide 25.0, Anion Gap 5, BUN 15, Creatinine 1.37 H, Estim Creat Clear Calc 58.47, Est GFR (MDRD) Af Amer 68, Est GFR (MDRD) Non-Af 56 L, BUN/Creatinine Ratio 10.9, Glucose 111 H, Calcium 8.1 L 08/15/19 06:01: POC Glucose 115 H Current Medications Acetaminophen (Tylenol) 650 mg RECTAL Q4H PRN PRN PRN Reason: Pain Score 1-10/Temp > 100.7 F Albuterol Sulfate (Ventolin Aerosols) 2.5 mg INHALATION Q2H PRN PRN PRN Reason: Shortness of Breath/Wheezing Enoxaparin Sodium (Lovenox) 40 mg SC DAILY [facility] Last Admin: 08/14/19 10:18 Dose: Not Given Documented by: Glucagon () 1 mg IM .X1 PRN PRN Reason: Hypoglycemia Hydromorphone HCl (Dilaudid Inj) 0.5 mg IV Q4H PRN PRN PRN Reason: Pain Score 6-10/10 Sodium Chloride () 1,000 mls @ 125 mls/hr IV .Q8H [facility] Last Admin: 08/15/19 06:05 Dose: 125 mls/hr Documented by: Piperacillin Sod/Tazobactam (Sod 3.375 gm/ Sodium Chloride) 50 mls @ 12.5 mls/hr IV Q8 [facility] Last Admin: 08/15/19 06:04 Dose: 12.5 mls/hr Documented by: Dextrose (Dextrose 10%-Water) 250 mls @ 999 mls/hr IV .Q16M PRN; Protocol PRN Reason: HYPOGLYCEMIA Sodium Chloride () 250 mls @ 15 mls/hr IV .[id number] PRN PRN Reason: Additional IVPB Infusion Famotidine 20 mg/ Sodium (Chloride) 10 mls @ 300 mls/hr IV Q12 [facility] Last Infusion: 08/14/19 22:13 Dose: Infused Documented by: Insulin Human Lispro (Humalog Kwikpen (Bkc)) 0 unit SC Q6 [facility]; Protocol Last Admin: 08/15/19 06:06 Dose: Not Given Documented by: Ondansetron HCl (Zofran) 4 mg IV Q8H PRN PRN PRN Reason: NAUSEA/VOMITING Phenol/Menthol (Chloraseptic (Bkc)) 5 spray MM Q2H PRN PRN PRN Reason: SORE THROAT Last Admin: 08/15/19 06:04 Dose: 5 spray Documented by: Prochlorperazine Edisylate (Compazine Iv) 5 mg IV Q4H PRN PRN PRN Reason: Breakthrough nausea/vomiting Sodium Chloride () 10 - 40 ml IV UD PRN PRN Reason: SALINE FLUSH Last Admin: 08/14/19 06:32 Dose: 10 ml Documented by: Medical Necessity - Tobacco Use Smoking Status: Never smoker Tobacco Use: Non-smoker Assessment/Plan All Active Problems SBO (small bowel obstruction) (Acute) Elevated BP without diagnosis of hypertension (Acute) I am following this patient in conjunction with Dr. Boyer Small bowel obstruction Remove NG tube Start clear liquids If tolerate clear liquids, will advance tomorrow Probable discharge tomorrow if tolerates diet We will continue to monitor this patient Inpatient E&M: [id number] [facility] Hosp L1
--- NOTE | 2019-08-15 10:00 | CASEMGMT ---
RN RAJ Face to Face with patient for initial transition planning/care coordination assessment. RN CM introduced self and role at [facility]. Patient lying in bed, alert and oriented. Patient willing to participate in assessment and is able to answer all questions appropriately. Care providers, pharmacy, and demographics verified. Patient wishes to discharge home, denies need for home health at this time. Patient states he has no further needs or concerns at this time. CM to follow for discharge planning needs that may arise. PCP: Jen Specialists: [facility] Preferred Pharmacy: [facility] Insurance: MMO Prescription Benefit: yes Living Will/HPOA: yes, brother Kailash Espinoza LNOK: brothers and sister Living Arrangements: Patient lives alone in single story home with 3 steps to enter the home. Patient is independent at home. Transportation: self, sister DME/HHC: Patient has raised toilet, cpap with oxygen through [facility] at . Disposition Plan: Patient to discharge home with family support and follow-up plans in place. Rosa PATEL, RN, CM
[2019-08-15] MEDS: Famotidine 200 MG/20 ML MDV 20 MG in 0.9% Normal Saline (Pres. free 8 ML 300 MG IV (10:08)
[2019-08-15 13:05] LABS: Bedside Glucose 112 mg/dL (70-110)
[2019-08-15 14:20] VITALS: BP 141/97; PULSE 58; RESP 16; TEMP 36.8; O2SAT 96
[2019-08-15] MEDS: Bisacodyl 10 MG Suppository RECTAL (14:27)
[2019-08-15 18:16] LABS: Bedside Glucose 111 mg/dL (70-110)
--- NOTE | 2019-08-15 18:38 | DCINST_ITS ---
- Discharge Diagnoses Current Active Problems: Current Active and Chronic Problems SBO (small bowel obstruction) (Acute) Diabetes mellitus, type II (Chronic) Psoriatic arthritis (Chronic) Elevated BP without diagnosis of hypertension (Acute) Chronic kidney disease, stage III (moderate) (Chronic) Reason(s) for Visit for Discharge Instructions: Abdominal pain You will use the following diet at home:: Calorie/Carbohydrate Controlled (specify 1200, 1400, etc), Cardiac Your food should be the consistency of: Regular Your liquids should be the consistency of: Regular/Thin Discharge Activity: Return to Normal Activity Instructions: Small Bowel Obstruction Additional Instructions: Continue to keep yourself hydrated. Eat food with fiber to have a normal bowel movement. You can buy over the counter metamucil or milk of magnesium 30mls daily to assist with bowel movements. Follow-up with Dr. Boyer in 1-2 weeks. Take note of changes in your medications. You were started on a new blood pressure pill. You need a repeat blood work to check on your kidneys within 1 week. Keep yourself hydrated. Allergies/Adverse Reactions: Allergies No Known Allergies Allergy (Verified 08/14/19 02:48) Medications to take at Discharge Secukinumab [Cosentyx Syringe] 1 injectable SQ QMONTH 08/14/19 metFORMIN (XR) [Glucophage Xr] 500 mg PO BID 08/14/19 Famotidine [Pepcid] 20 mg PO DAILY 14 Days #14 tab 08/15/19 Lisinopril [Zestril] 10 mg PO DAILY 30 Days #30 tab 08/15/19 Phenol/Sodium Phenolate [Chloraseptic (BKC)] 5 spray MM Q2H PRN PRN ml 08/15/19 The following prescriptions were given: Famotidine [Pepcid] 20 mg PO DAILY 14 Days #14 tab Transmission Status: Pending to [facility] Lisinopril [Zestril] 10 mg PO DAILY 30 Days #30 tab Transmission Status: Pending to [facility] Primary Care Physician: Niko Li MD [Primary Care Provider] - Please follow up with your Primary Care Physician in: within 1-2 weeks Test Results: Test results from this visit will be discussed in further detail at your follow- up appointment, if applicable. Please Follow Up With: Ricardo Boyer MD When: within 1-2 weeks Proposed Discharge Date: 08/15/19
--- NOTE | 2019-08-15 18:45 | PCM.DC.SUM ---
Discharge Date and Diagnosis Date of Admission: 08/14/19 Date of Discharge: 08/16/19 - Primary Discharge Diagnosis Active and Suspected Problems SBO (small bowel obstruction) (Acute) Elevated BP without diagnosis of hypertension (Acute) - Secondary Discharge Diagnosis Chronic Problems Diabetes mellitus, type II (Chronic) Psoriatic arthritis (Chronic) Chronic kidney disease, stage III (moderate) (Chronic) Hospital Course and Treatment Imaging Results: Clinical Impression(s) from Imaging Studies Abdomen/Pelvis CT 08/14/19 02:55 IMPRESSION: 1. Findings suggests small bowel obstruction. Transition occurs within the proximal small bowel. This may be related to an adhesion. The mid and distal small bowel and colon are not dilated. 2. Questionable sequela of colitis involving the transverse colon. Electronically Signed: Rosa Charles MD at 4:13 EDT , Service support , KUB X-Ray 08/14/19 05:26 IMPRESSION: Appropriate positioning of enteric tube. Electronically Signed: Rosa Charles MD at 6:30 EDT , Service support , Abdomen X-Ray 08/15/19 08:15 IMPRESSION: Moderate amount of fecal material is seen in the colon. Electronically Signed: Mookie Alvarenga, at 13:02 EDT , Service support , General surgery Operations: None Procedures: None Summary of Care Provided: The patient is a 63 year old M with past medical history of type II DM, CKD stage III who was admitted on 3/on 09/30 0 with abdominal pain and nausea and found to have acute small bowel obstruction with possible colitis seen on CT abd/pelvis. Patient was seen by general surgery, managed conservatively with NG tube and n.p.o. status as well as IV fluids. Patient improved with this conservative management and started passing flatus. He was started on a clear liquid diet with improvement. KUB showed moderate amount of stools. He was given a stool softner with improvement in his bowels. His antibiotics was discontinued. Patient was kept off his metformin and put on insulin sliding scale with blood glucose checks. His blood pressure was elevated and he was started on lisinopril. Patient needs to repeat his renal function within 1 week. He was able to tolerate a regular diet and was subsequently discharged. He will follow- up with general surgery in a week. Subjective: See progress note Objective: See progress note - Physical Exam Vitals/I&O's: Vital Signs Temp Pulse Resp BP Pulse Ox 98.2 F 58 L 16 141/97 H 96 08/15/19 14:20 08/15/19 14:20 08/15/19 14:20 08/15/19 14:20 08/15/19 14:20 Oxygen Delivery Method Room Air Weight: 104.8 kg Body Mass Index (BMI) 33.0 Intake and Output for Last 24 Hours 08/13/19 08/14/19 08/15/19 23:59 23:59 23:59 Intake Total 3647.08 / 3647.08 2633.33 / 2633.33 Output Total 102 / 102 100 / 100 Balance 3545.08 / 3545.08 2533.33 / 2533.33 Laboratory Results 08/14/19 23:51: POC Glucose 109 08/15/19 05:02: WBC 9.2, RBC 4.99, Hgb 14.4, Hct 45.0, MCV 90.2, MCH 28.9, MCHC 32.0, RDW Std Deviation 40.0, RDW Coeff of Nirali 12.2, Plt Count 271, MPV 8.6, Immature Gran % (Auto) 0.300, Neut % (Auto) 63.2, Lymph % (Auto) 22.0, [place] % (Auto) 9.8, Eos % (Auto) 4.0, Baso % (Auto) 0.7, Absolute Neuts (auto) 5.8, Absolute Lymphs (auto) 2.03, Nucleated RBC % 0 08/15/19 05:02: Sodium 141, Potassium 3.8, Chloride 111 H, Carbon Dioxide 25.0, Anion Gap 5, BUN 15, Creatinine 1.37 H, Estim Creat Clear Calc 58.47, Est GFR (MDRD) Af Amer 68, Est GFR (MDRD) Non-Af 56 L, BUN/Creatinine Ratio 10.9, Glucose 111 H, Calcium 8.1 L 03/16/20 06:01: POC Glucose 115 H 08/15/19 12:34: POC Glucose 112 H 08/15/19 17:23: POC Glucose 111 H Current Medications Albuterol Sulfate (Ventolin Aerosols) 2.5 mg INHALATION Q2H PRN PRN PRN Reason: Shortness of Breath/Wheezing Enoxaparin Sodium (Lovenox) 40 mg SC DAILY [facility] Last Admin: 08/15/19 10:13 Dose: Not Given Documented by: Famotidine (Pepcid) 20 mg PO DAILY [facility] Glucagon () 1 mg IM .X1 PRN PRN Reason: Hypoglycemia Dextrose (Dextrose 10%-Water) 250 mls @ 999 mls/hr IV .Q16M PRN; Protocol PRN Reason: HYPOGLYCEMIA Sodium Chloride () 250 mls @ 15 mls/hr IV .[id number] PRN PRN Reason: Additional IVPB Infusion Insulin Human Lispro (Humalog Kwikpen ([facility])) 0 unit SC ACHS [facility]; Protocol Last Admin: 08/15/19 17:28 Dose: Not Given Documented by: Lisinopril (Zestril) 10 mg PO DAILY [facility] Last Admin: 08/15/19 14:27 Dose: Not Given Documented by: Ondansetron HCl (Zofran) 4 mg IV Q8H PRN PRN PRN Reason: NAUSEA/VOMITING Phenol/Menthol (Chloraseptic ([facility])) 5 spray MM Q2H PRN PRN PRN Reason: SORE THROAT Last Admin: 08/15/19 06:04 Dose: 5 spray Documented by: Sodium Chloride () 10 - 40 ml IV UD PRN PRN Reason: SALINE FLUSH Last Admin: 08/14/19 06:32 Dose: 10 ml Documented by: Discharge Diet: Light diet - advance as tolerated, 6 Cup Fluid Restriction, Carb Control Diet Discharge Activity: Return to Normal Activity Home Medications: Medications to take at Discharge Secukinumab [Cosentyx Syringe] 1 injectable SQ QMONTH 08/14/19 metFORMIN (XR) [Glucophage Xr] 500 mg PO BID 08/14/19 Famotidine [Pepcid] 20 mg PO DAILY 14 Days #14 tab 08/15/19 Lisinopril [Zestril] 10 mg PO DAILY 30 Days #30 tab 08/15/19 Phenol/Sodium Phenolate [Chloraseptic ([facility])] 5 spray MM Q2H PRN PRN ml 08/15/19 Following Prescrptions Were Given to Patient: Famotidine [Pepcid] 20 mg PO DAILY 14 Days #14 tab Transmission Status: Received by LACY STOVALL RD Lisinopril [Zestril] 10 mg PO DAILY 30 Days #30 tab Transmission Status: Received by LACY STOVALL RD Primary Care Physician: Niko Li MD [Primary Care Provider] - Please follow up with your Primary Care Physician in: within 1-2 weeks Please Follow Up With: Ricardo Boyer MD When: within 1-2 weeks Patient Instructions: Small Bowel Obstruction Disposition: Home Minutes spent on discharge:: 40 Patient Condition:: Stable Medical Necessity - Tobacco Use Smoking Status: Never smoker Tobacco Use: Non-smoker Meaningful Use Info Meaningful Use Diagnoses (Choose all that apply): None applicable Inpatient E&M: [id number] [facility]
[2019-08-15 19:50] VITALS: BP 144/88; PULSE 62; RESP 16; TEMP 36.2; O2SAT 96
== END 2019-08-15 19:55 | disposition home or self-care (01) | DRG 390 ==
LOC: ED 03:28 → MS3 04:52
PROVIDERS: Student in an Organized Health Care Education/Training Program; Admitting Provider Family Medicine; Emergency Provider Emergency Medicine; PCP Family Medicine; Visit Provider Internal Medicine
DX: K56.609 Unspecified intestinal obstruction, unspecified as to partial versus complete obstruction (principal); R03.0 Elevated blood-pressure reading, without diagnosis of hypertension; E11.22 Type 2 diabetes mellitus with diabetic chronic kidney disease; N18.3 Chronic kidney disease, stage 3 (moderate); L40.50 Arthropathic psoriasis, unspecified; K21.9 Gastro-esophageal reflux disease without esophagitis; Z90.49 Acquired absence of other specified parts of digestive tract; Z90.5 Acquired absence of kidney; Z79.4 Long term (current) use of insulin
CPT/HCPCS: 36415; 74018; 74019; 74177; 80048; 80076; 81001; 82962; 83690; 85025; 97802; 99251; 99285; J7030; Q9967; A4216; G0463; J2405; J3490

== ENCOUNTER 2020-03-27 23:57 | Emergency (ER) | payer OTHER, SELFPAY ==
[2019-08-14 05:53] VITALS: BMI 33.0
[2020-03-27 23:58] VITALS: BP 167/92; PULSE 65; RESP 16; TEMP 36.2; O2SAT 94; BMI 34.4
--- NOTE | 2020-03-28 00:06 | ED.RN ---
RN CALLED FOR EKG, PULLED OLD EKGS FOR
--- NOTE | 2020-03-28 00:19 | ED.DCSUM_ITS ---
History of Present Illness Chief Complaint: Hypertension Informant: Patient Narrative: 64-year-old male presenting with chief complaint of elevated blood pressure at home. He states he checked his blood pressure and it was in the 180s at home. He states he could feel the pulse in his head. He states he also has a history of PVCs and was feeling as if he was having PVCs. He checked his heart rate and it was in the 70s. He did not have any chest pain or shortness of breath. Patient states that now that he is here he feels much improved. He has no visual complaints, nausea, dizziness. Patient states he has 1 kidney and was previously supposed to be on lisinopril to protect his kidney however his blood pressure was low and his plate inspector stated he did not want to put him on blood pressure medication at that time. That time he noted his blood pressure has been coming up. - Past Medical History (1) Chronic kidney disease, stage III (moderate) Status: Chronic (2) Diabetes mellitus, type II Status: Chronic (3) Psoriatic arthritis Status: Chronic Past Medical History - Allergies and Home Meds Allergies/Adverse Reactions: Allergies No Known Allergies Allergy (Verified 03/27/20 23:58) Primary Care Physician: Niko Li MD [Primary Care Provider] - Past Medical History: - - Reviewed in problem list Surgical History: cholecystectomy, - - L Unilateral nephrectomy, donation. Lives: Alone Smoking Status: Never smoker - Family History Maternal Family History: Reports: Cancer Paternal Family History: Reports: Heart Disease Review of Systems General: Denies: Chills, Fever, Malaise Eyes: Denies: Visual changes - bilaterally, Diplopia ENT: Denies: Rhinorrhea, Sore throat Cardiovascular: Reports: Palpitations. Denies: Chest pain Respiratory: Denies: Dyspnea, Cough, Dyspnea on exertion Gastrointestinal: Denies: Abdominal pain, Nausea, Vomiting, Diarrhea, Melena, H ematochezia Genitourinary: Denies: Dysuria, Hematuria, Frequency Musculoskeletal: Denies: Back pain, Extremity Pain Skin: Denies: Rash, Wounds Neurological: Reports: Headache. Denies: Parasthesia, Numbness Physical Exam Vital Signs/Narrative: Vital Signs Temp Pulse Resp BP Pulse Ox 03/27/20 23:58 97.1 F L 65 16 167/92 H 94 General: Well nourished, No Acute Distress Head: Normocephalic, Atraumatic Eyes: Perrl, EOMI ENT: Moist mucous membranes, No rhinorrhea Cardiovascular: Regular rate, Regular rhythm Respiratory: No distress, CTA bilaterally Extremities: Nontender, No edema Skin: Normal color, No rash Neurological: Alert, Oriented x3, Cranial nerves II-XII grossly intact Psychological: Normal affect, Normal Mood Diagnostic/Tx/Re-eval Clinical Impression(s) from Imaging Studies Chest X-Ray 03/28/20 00:19 IMPRESSION: No acute cardiopulmonary abnormality. at 0134 Reported and signed by: Patria Duarte MD Electronically Signed: Patria Duarte MD at 1:34 EDT Tel , Service support , Brain CT 03/28/20 00:20 IMPRESSION: No acute intracranial abnormality. Chronic white matter changes. Individualized dose optimization techniques were used for this CT. at 0133 Reported and signed by: Patria Duarte MD Electronically Signed: Patria Duarte MD at 1:33 EDT Tel , Service support , Laboratory Data 03/28/20 03/28/20 00:35 00:35 WBC 9.4 RBC 5.12 Hgb 14.8 Hct 44.5 MCV 86.9 MCH 28.9 MCHC 33.3 RDW Std Deviation 39.6 RDW Coeff of Nirali 12.5 Plt Count 295 MPV 9.1 Immature Gran % (Auto) 0.500 Neut % (Auto) 61.5 Lymph % (Auto) 22.8 [place] % (Auto) 10.9 H Eos % (Auto) 3.6 Baso % (Auto) 0.7 Absolute Neuts (auto) 5.7 Absolute Lymphs (auto) 2.13 Nucleated RBC % 0 Sodium 137 Potassium 4.6 Chloride 105 Carbon Dioxide 26.0 Anion Gap 6 BUN 19 H Creatinine 1.64 H Estim Creat Clear Calc 48.22 Est GFR (MDRD) Af Amer 55 L Est GFR (MDRD) Non-Af 45 L BUN/Creatinine Ratio 11.6 Glucose 253 H Calcium 9.1 Troponin I < 0.015 - Rhythm Strip Rhythm Strip: Sinus Rhythm Rate: 62 - EKG Initial EKG Interpretation: Sinus Rhythm, AV Block - 1st degree, Inverted T-Waves - Medical Decision Making Patient presents with concern for elevated blood pressure and states he was having some PVCs which he has had in the past. He denies any chest pain or shortness of breath. He did state that he could feel his blood pressure pulsing in his head. Patient had EKG which showed sinus rhythm with first-degree AV block which is new. There is T wave inversions in the lateral leads which appear to be on his old EKG. CBC is normal. Patient's creatinine is slightly increased over previous he was counseled on hydrating as well as following up with his plate inspector to monitor this. I do not believe that he needs to be admitted for it. Troponin is negative. Chest x-ray is negative. CT of the brain is negative. On reevaluation patient feeling improved. His blood has improved as well. He states that his blood pressure outpatient has been around 100 systolic and his plate inspector did not want him on any antihypertensives. I will have him follow-up with his plate inspector for review of this. Patient will be discharged home in stable condition. He is given return precautions. Impression: 1. Elevated blood pressure 2. Palpitations ED Disposition - Plan for ED Patient: Disposition: Home or Assisted Living Instructions: ED HBP No Tx, ED Palpitations Referrals: Niko Li MD [Primary Care Provider] -
--- NOTE | 2020-03-28 00:19 | RAD_ITS ---
HISTORY: Palpitations. ADDITIONAL HISTORY: None provided. EXAMINATION/TECHNIQUE: XR Chest 1 View AP/PA Number of images including paperwork: 1 COMPARISON: 10/17/2012 FINDINGS: LUNGS AND PLEURA: No consolidation, mass or pleural effusion. CARDIAC SILHOUETTE: Stable. MEDIASTINUM AND FRED: Aortic tortuosity. UPPER ABDOMEN: Unremarkable. SKELETON AND SOFT TISSUES: No acute skeletal findings. Degenerative changes. OTHER DEVICES AND HARDWARE: None. RAD/Chest 1 View (Portable) IMPRESSION: No acute cardiopulmonary abnormality. at 0134 Reported and signed by: Patria Duarte MD Electronically Signed: Patria Duarte MD at 1:34 EDT Tel , Service support ,
--- NOTE | 2020-03-28 00:19 | EKG12_ITS ---
Test Reason : SOB Blood Pressure : / mmHG Vent. Rate : 062 BPM Atrial Rate : 062 BPM P-R Int : 212 ms QRS Dur : 104 ms QT Int : 388 ms P-R-T Axes : 032 078 039 degrees QTc Int : 393 ms Sinus rhythm with 1st degree A-V block T wave abnormality, consider lateral ischemia Abnormal ECG Confirmed by ANITHA PERDOMO, STEPHANIE ([id number]), metropolitan editor MIGUEL MOSQUEDA ([id number]) on 03/29/2020 9:16:29 AM Referred By: JUAN CARLOS Confirmed By:STEPHANIE WELSH MD
--- NOTE | 2020-03-28 00:20 | CT_ITS ---
HISTORY: ELEVATED BP,HEADACHE HX:DIABETES ADDITIONAL HISTORY: None provided. COMPARISON: 10/17/2012 EXAMINATION/TECHNIQUE: CT Head or Brain W/O Contrast Injection. Axial, coronal and sagittal images. Number of images including paperwork: 271. A radiation dose optimization technique was used for this scan. FINDINGS: BRAIN: No acute hemorrhage or mass. No definite acute infarct; MRI more sensitive. White matter hypodensity is nonspecific but most commonly seen with chronic ischemic changes. VENTRICULAR SYSTEM: No hydrocephalus. PARANASAL SINUSES AND MASTOIDS: No air-fluid level in the imaged extent. Mild mucosal thickening noted. ORBITS: Unremarkable imaged extent. SKELETON AND SOFT TISSUES: Calvarium intact. ASPECTS score: Not applicable. CT/Brain/Head without Contrast IMPRESSION: No acute intracranial abnormality. Chronic white matter changes. Individualized dose optimization techniques were used for this CT. at 0133 Reported and signed by: Patria Duarte MD Electronically Signed: Patria Duarte MD at 1:33 EDT Tel , Service support ,
[2020-03-28 00:43] LABS: Absolute Lymphocyte Count 2.13 X10^3/uL (0.83-4.51); Absolute Neutrophil Count 5.7 X10^3/uL (2.0-7.7); Basophil# 0.07 X10^3/uL; Basophil% 0.7 % (0-1); Eosinophil# 0.34 X10^3/uL; Eosinophils% 3.6 % (0-5); Hematocrit 44.5 % (40-54); Hemoglobin 14.8 g/dL (13.0-16.5); Lymphocyte # 2.13 X10^3/ul (4.0); Lymphocyte % 22.8 % (19-41); Mean Corp Hgb Conc 33.3 g/dL (32-36); Mean Corpuscular Hgb 28.9 pg (27.0-32.0); Mean Corpuscular Volume 86.9 fL (80-94); Mean Platelet Vol. 9.1 fl (6.2-12.0); Monocyte# 1.02 X10^3/uL; Monocyte% 10.9 % (0-10); NRBC Flagged by Analyzer 0 % (0-5); Neutrophil # 5.74 X10^3/uL (2.7-7.7); Neutrophil % 61.5 % (47-70); Platelet Count 295 K/mm3 (150-450); RBC Distribution Width CV 12.5 % (11.6-14.6); RBC Distribution Width SD 39.6 fl (35.1-43.9); Red Blood Count 5.12 M/mm3 (4.6-6.2); White Blood Count 9.4 K/mm3 (4.4-11.0)
[2020-03-28 01:15] LABS: Anion Gap 6 (5-15); BUN 19 mg/dL (7-18); BUN/Creat Ratio 11.6 RATIO (10-20); Calcium,Total 9.1 mg/dL (8.5-10.1); Chloride 105 mmol/L (98-107); Creatinine, Serum 1.64 mg/dL (0.70-1.30); EST Glomerular Filtration Rate 45 mL/min (>60); Est Glom Filt Rate - Afr Amer 55 mL/min (>60); Estimated Creatinine Clearance 48.22 ml/min; Glucose 253 mg/dL (74-106); Potassium 4.6 mmol/L (3.5-5.1); Sodium Level 137 mmol/L (136-145)
[2020-03-28 01:48] VITALS: BP 132/82; PULSE 70; RESP 16; O2SAT 98
== END 2020-03-28 01:48 | disposition home or self-care (01) ==
PROVIDERS: Emergency Provider Student in an Organized Health Care Education/Training Program; PCP Family Medicine
DX: I12.9 Hypertensive chronic kidney disease with stage 1 through stage 4 chronic kidney disease, or unspecified chronic kidney disease (principal); E11.22 Type 2 diabetes mellitus with diabetic chronic kidney disease; N18.30 Chronic kidney disease, stage 3 unspecified; R00.2 Palpitations; Z90.5 Acquired absence of kidney; Z79.84 Long term (current) use of oral hypoglycemic drugs
CPT/HCPCS: 70450; 71045; 80048; 84484; 85025; 93005; 99285; A4216

== ENCOUNTER 2020-11-25 20:09 | Emergency (ER) | payer OTHER, SELFPAY ==
[2020-11-25 20:10] VITALS: BP 148/85; PULSE 79; RESP 16; TEMP 35.9; O2SAT 95; BMI 34.4
--- NOTE | 2020-11-25 20:27 | RAD_ITS ---
STUDY: X-RAY CHEST REASON FOR EXAM: Male, 65 years old. Chest pain TECHNIQUE: Frontal view COMPARISON: 03/28/2020 FINDINGS: The lungs are clear and expanded. There is no demonstrated pleural abnormality. Normal size heart. Normal mediastinum and jerel. Normal visualized pulmonary arteries. Normal visualized aortic arch and descending thoracic aorta. Degenerative changes of the thoracic spine. Normal visualized ribs, clavicles, and shoulders. There is no demonstrated abnormality of the visualized soft tissue structures of the upper abdomen. RAD/Chest 1 View (Portable) IMPRESSION: Normal x-ray examination of the chest. Electronically Signed: Malik Spence DO at 21:18 EDT Tel [phone], Service support ,
--- NOTE | 2020-11-25 20:27 | EKG12_ITS ---
Test Reason : PALPS Blood Pressure : / mmHG Vent. Rate : 073 BPM Atrial Rate : 073 BPM P-R Int : 190 ms QRS Dur : 100 ms QT Int : 386 ms P-R-T Axes : 028 074 059 degrees QTc Int : 425 ms Normal sinus rhythm Incomplete right bundle branch block Nonspecific T wave abnormality Abnormal ECG Confirmed by ZINA PERDOMO, GAGANDEEP ([id number]), copy editor MIGUEL MOSQUEDA ([id number]) on 11/27/2020 9:09:21 AM Referred By: Confirmed By:GAGANDEEP IZAGUIRRE MD
--- NOTE | 2020-11-25 20:28 | EX.ED.DYSGE1 ---
HPI History of Present Illness Chief Complaint: Palpitations Informant: patient Onset/Context/Timing Onset: Today Context: Gradual Onset Current Severity: Gone Maximum Severity: Moderate Narrative Narrative: Patient presents secondary to palpitations. He has a history of symptomatic PVCs and states this afternoon he was having them very regularly. It lasted longer than normal. At this time he states he feels like it has resolved. He denies any chest pain. He does not feel lightheaded or dizzy with episodes. PFSH PFS Medical History Diabetes Kidney disease Home Medications metformin 500 mg PO BID 08/14/19 [History Last Taken Unknown] secukinumab 1 injectable SQ QMONTH 08/14/19 [History Last Taken 08/10/19 11:00] cholecalciferol (vitamin D3) 2,000 unit PO DAILY 03/28/20 [History Last Taken Unknown] glimepiride mg PO/SL DAILY 11/25/20 [History Last Taken Unknown] Allergy/AdvReac Type Severity Reaction Status Date / Time No Known Allergies Allergy Verified 11/25/20 20:11 Social History Smoking Status: Never smoker ROS ROS ED Constitutional Constitutional ED: Denies chills or fever(s) Eyes Eyes: Denies change in vision ENT ENT ED: Denies sore throat Cardiovascular Cardiovascular: Reports palpitations; Denies chest pain Respiratory/Chest Respiratory/Chest: Denies cough or dyspnea Gastrointestinal Gastrointestinal: Denies abdominal pain, diarrhea, nausea or vomiting Genitourinary Genitourinary ED: Denies dysuria Musculoskeletal Musculoskeletal: Denies back pain Integumentary Denies rash Neurologic Neurologic: Denies headache(s) or weakness Psychiatric Psychiatric: Denies anxiety or depression Endocrine Endocrinology: Denies polydipsia or polyuria Allergic/Immunologic Allergic/Immunologic ED: Denies urticaria EXAM Physical Exam Const Vital Signs: 11/25/20 20:10 11/25/20 20:15 Temperature 96.7 F L Temperature Source Temporal Pulse Rate 79 Respiratory Rate 16 Respiratory Effort Normal Blood Pressure 148/85 H Blood Pressure Mean 106 Pulse Ox 95 Oxygen Delivery Method Room Air Positive well nourished and well developed General Appearance ED: well developed HEENT Reports normocephalic and head/scalp atraumatic Eyes PERRL and EOMs intact bilaterally Neck supple Chest Wall inspection of chest normal and palpation of chest normal Resp normal respiratory effort and clear to auscultation bilaterally Cardio regular rate and regular rhythm GI normal to inspection, nondistended, normoactive bowel sounds Palpation: soft Back/Spine no CVA tenderness Extremity normal to inspection Neuro oriented x3 and no sensory deficits noted Sensorium / Orientation: alert Motor Exam: strength 5/5 throughout Psych mental status grossly normal Skin no rashes or lesions noted MDM MDM MDM Narrative Medical decision making narrative: Patient is placed on monitoring manager. EKG and labs are obtained. Lab Data Attestation: I reviewed the patient's lab results. Labs: Laboratory Results - last 24 hr 11/25/20 11/25/20 20:20 20:20 WBC 10.9 RBC 5.13 Hgb 14.9 Hct 45.0 MCV 87.7 MCH 29.0 MCHC 33.1 RDW Std Deviation 40.7 RDW Coeff of Nirali 12.7 Plt Count 306 MPV 8.8 Immature Gran % (Auto) 0.600 Neut % (Auto) 62.0 Lymph % (Auto) 23.6 [place] % (Auto) 10.8 H Eos % (Auto) 2.3 Baso % (Auto) 0.7 Absolute Neuts (auto) 6.7 Absolute Lymphs (auto) 2.56 Nucleated RBC % 0 Sodium 141 Potassium 3.8 Chloride 106 Carbon Dioxide 26.0 Anion Gap 9 BUN 22 H Creatinine 2.15 H Estim Creat Clear Calc 36.31 Est GFR (MDRD) Af Amer 40 L Est GFR (MDRD) Non-Af 33 L BUN/Creatinine Ratio 10.2 Glucose 211 H Calcium 8.9 Magnesium 1.9 EKG Initial EKG: Attestation: I personally reviewed and interpreted this EKG as follows: Interpretation: Sinus Rhythm (Sinus at 73. Specific lateral T wave changes. No acute ST change.) Treatment and Re-Evaluation Comments:: Patient is had no recurrent palpitations while in the emergency room. Normal sinus rhythm on monitoring manager. Blood work is reviewed. Potassium and magnesium are normal. Patient's BUN/creatinine are slightly bumped over baseline. He will be given IV fluid bolus prior to discharge. Discharge Plan Triage Chief Complaint: Palpitations ED Provider: Gisela Membreno Dx/Rx/DC Orders Clinical Impression: Palpitations Instructions: ED Palpitations Prescriptions: No Action metformin 500 MG tablet 500 mg PO BID RF: 0 secukinumab 150 mg/mL syringe 1 injectable SQ QMONTH RF: 0 cholecalciferol (vitamin D3) 2,000 UNIT capsule 2,000 unit PO DAILY RF: 0 glimepiride PO/SL DAILY RF: 0 Primary Care Provider: Niko Li Referrals: Niko Li MD [Primary Care Provider] - As Needed Disposition Disposition: Home, Self Care
[2020-11-25 20:33] LABS: Absolute Lymphocyte Count 2.56 X10^3/uL (0.83-4.51); Absolute Neutrophil Count 6.7 X10^3/uL (2.0-7.7); Basophil# 0.08 X10^3/uL; Basophil% 0.7 % (0-1); Eosinophil# 0.25 X10^3/uL; Eosinophils% 2.3 % (0-5); Hemoglobin 14.9 g/dL (13.0-16.5); Lymphocyte # 2.56 X10^3/ul (0.83-4.51); Lymphocyte % 23.6 % (19-41); Mean Corp Hgb Conc 33.1 g/dL (32-36); Mean Corpuscular Volume 87.7 fL (80-94); Mean Platelet Vol. 8.8 fl (6.2-12.0); Monocyte# 1.17 X10^3/uL; Monocyte% 10.8 % (0-10); NRBC Flagged by Analyzer 0 % (0-5); Neutrophil # 6.73 X10^3/uL (2.7-7.7); Platelet Count 306 K/mm3 (150-450); RBC Distribution Width CV 12.7 % (11.6-14.6); RBC Distribution Width SD 40.7 fl (35.1-43.9); Red Blood Count 5.13 M/mm3 (4.6-6.2); White Blood Count 10.9 K/mm3 (4.4-11.0)
[2020-11-25 20:53] LABS: Anion Gap 9 (5-15); BUN 22 mg/dL (7-18); BUN/Creat Ratio 10.2 RATIO (10-20); Calcium,Total 8.9 mg/dL (8.5-10.1); Chloride 106 mmol/L (98-107); Creatinine, Serum 2.15 mg/dL (0.70-1.30); EST Glomerular Filtration Rate 33 mL/min (>60); Est Glom Filt Rate - Afr Amer 40 mL/min (>60); Estimated Creatinine Clearance 36.31 ml/min; Glucose 211 mg/dL (74-106); Magnesium 1.9 mg/dL (1.6-2.6); Potassium 3.8 mmol/L (3.5-5.1); Sodium Level 141 mmol/L (136-145)
[2020-11-25] MEDS: 0.9% Normal Saline 1,000 ML 150 ML IV (21:00)
[2020-11-25 21:13] VITALS: BP 123/87; PULSE 70; RESP 21; O2SAT 91
[2020-11-25 21:25] VITALS: BP 121/82; PULSE 68; RESP 16; O2SAT 98
== END 2020-11-25 21:26 | disposition home or self-care (01) ==
PROVIDERS: Emergency Provider Emergency Medicine; PCP Family Medicine
DX: R00.2 Palpitations (principal); E11.9 Type 2 diabetes mellitus without complications; Z79.84 Long term (current) use of oral hypoglycemic drugs; Z79.899 Other long term (current) drug therapy
CPT/HCPCS: 71045; 80048; 83735; 85025; 93005; 99284

== ENCOUNTER 2021-03-18 21:11 | Emergency (ER) | payer OTHER, SELFPAY ==
[2021-03-18 21:13] VITALS: BP 152/107; PULSE 70; RESP 22; TEMP 36.1; O2SAT 95; BMI 34.1
--- NOTE | 2021-03-18 22:00 | EKG12_ITS ---
Test Reason : PALPS Blood Pressure : / mmHG Vent. Rate : 070 BPM Atrial Rate : 070 BPM P-R Int : 182 ms QRS Dur : 104 ms QT Int : 382 ms P-R-T Axes : 007 053 061 degrees QTc Int : 412 ms Sinus rhythm with Premature atrial complexes Nonspecific T wave abnormality Abnormal ECG Confirmed by ZINA PERDOMO, GAGANDEEP ([id number]), make up editor MIGUEL MOSQUEDA ([id number]) on 03/19/2021 9:26:04 AM Referred By: YASH Confirmed By:GAGANDEEP IZAGUIRRE MD
--- NOTE | 2021-03-18 22:00 | RAD_ITS ---
STUDY: X-RAY CHEST REASON FOR EXAM: Male, 65 years old. Chest pain TECHNIQUE: Portable, upright, AP chest radiograph COMPARISON: 12/25/2000 FINDINGS: The lungs are clear and expanded. There is no demonstrated pleural abnormality. Normal size heart. Normal mediastinum and jerel. Normal visualized pulmonary arteries. Normal visualized aortic arch and descending thoracic aorta. There are diffuse degenerative changes of the visualized thoracic spine. There is no demonstrated abnormality of the visualized soft tissue structures of the upper abdomen. RAD/Chest 1 View (Portable) IMPRESSION: No acute abnormal cardiopulmonary finding. Electronically Signed: Cabrera Simon MD at 22:33 EDT Tel , Service support ,
[2021-03-18 22:10] VITALS: O2SAT 92
--- NOTE | 2021-03-18 22:25 | EDS_ITS ---
HPI History of Present Illness Chief Complaint: Palpitations Narrative Narrative: 65-year-old male presenting with palpitations. He states that this is been a problem for the last couple of months. He has an appointment with his primary care provider on . He states he has a history of PVCs. He states he came to the emergency room his blood pressure appeared to have shot up tonight. He was experiencing palpitations. His blood pressure has come down she is been in the emergency room. He denies chest pain or shortness of breath. He denies lightheadedness or dizziness. He has not had any syncopal episodes. Patient denies cardiac history. He admits to diabetes, psoriatic arthritis, CKD stage III [facility] Medical History Diabetes Kidney disease Psoriasis Home Medications metformin 500 mg PO BID 08/14/19 [History Last Taken Unknown] cholecalciferol (vitamin D3) 2,000 unit PO DAILY 03/28/20 [History Last Taken Unknown] secukinumab [Cosentyx Pen (2 Pens)] 300 mg SUBCUT QMONTH 03/18/21 [History Last Taken Unknown] Allergy/AdvReac Type Severity Reaction Status Date / Time No Known Allergies Allergy Verified 03/18/21 21:12 Surgical History History of cholecystectomy History of kidney removal Social History Smoking Status: Never smoker ROS [facility] ED Constitutional Constitutional ED: Denies chills or fever(s) Eyes Eyes: Denies blurry vision or diplopia ENT ENT ED: Denies rhinorrhea or sore throat Cardiovascular Cardiovascular: Reports palpitations; Denies chest pain Respiratory/Chest Respiratory/Chest: Denies cough, dyspnea or sputum Gastrointestinal Gastrointestinal: Denies abdominal pain, nausea or vomiting Genitourinary Genitourinary ED: Denies dysuria or hematuria Musculoskeletal Musculoskeletal: Denies arthralgias or myalgias Integumentary Denies abscess or rash Neurologic Neurologic: Denies headache(s) or paresthesias EXAM Physical Exam Const Vital Signs: 03/18/21 21:13 03/18/21 22:10 03/18/21 22:45 Temperature 97.0 F L Temperature Source Temporal Pulse Rate 70 64 Respiratory Rate 22 H Blood Pressure 152/107 H 138/91 H Blood Pressure Mean 122 106 Pulse Ox 95 92 Oxygen Delivery Method Room Air Room Air Positive obese General Appearance ED: NAD; Negative for pallor Nutritional Appearance: obese HEENT Reports moist mucous membranes normocephalic and atraumatic Eyes PERRL and EOMs intact bilaterally Resp normal respiratory effort Effort and Inspection: respiratory distress Cardio regular rate and regular rhythm GI normal to inspection, nondistended, normoactive bowel sounds Extremity normal to inspection General Extremety ED: Negative for edema or tenderness General Extremity: Negative for edema Neuro oriented x3 Sensorium / Orientation: awake and alert Psych mental status grossly normal Skin General Skin Exam: Negative for jaundice or pallor Heart Score History: Slightly/Non-Suspicious ECG: Normal Age: >45 - <65 years Risk Factors: 1 or 2 Risk Factors Troponin: </= Normal Limit Score: 2 MDM MDM MDM Narrative Medical decision making narrative: Patient presenting with palpitations which have been going on for couple of months. Has no history of PVCs. Is not near syncopal or lightheaded. Patient denies any chest pain. Patient's EKG on my interpretation shows a sinus rhythm at 70 bpm with occasional PAC. No ST elevation or depression. CBC is unremarkable. BMP shows creatinine is 1.62 which is actually improved. His glucose is slightly elevated at 268 without an anion gap. Troponin is negative. D-dimer is negative. Chest x-ray is interpreted by myself shows no acute cardiopulmonary process and the radiologist does agree at this point the patient is reassured. He will follow-up with his primary care physician. If he has any new or worsening symptoms he should return. Impression: 1. Palpitations 2. History of PVCs 3. PACs Lab Data Labs: Laboratory Results - last 24 hr 03/18/21 03/18/21 03/18/21 21:20 21:20 21:20 WBC 8.9 RBC 5.20 Hgb 15.4 Hct 44.8 MCV 86.2 MCH 29.6 MCHC 34.4 RDW Std Deviation 38.4 RDW Coeff of Nirali 12.2 Plt Count 340 MPV 9.3 Immature Gran % (Auto) 0.600 Neut % (Auto) 56.8 Lymph % (Auto) 28.2 [place] % (Auto) 8.9 Eos % (Auto) 4.6 Baso % (Auto) 0.9 Absolute Neuts (auto) 5.1 Absolute Lymphs (auto) 2.52 Nucleated RBC % 0 D-Dimer Quant (PE/DVT) 0.31 Sodium 137 Potassium 3.8 Chloride 104 Carbon Dioxide 26.0 Anion Gap 7 BUN 20 H Creatinine 1.62 H Estim Creat Clear Calc 48.19 Est GFR (MDRD) Af Amer 56 L Est GFR (MDRD) Non-Af 46 L BUN/Creatinine Ratio 12.3 Glucose 268 H Calcium 9.1 Troponin I High Sens 33 Radiography Diagnostic Testing: Clinical Impression(s) from Imaging Studies Chest X-Ray 03/18/21 22:00 IMPRESSION: No acute abnormal cardiopulmonary finding. Electronically Signed: Cabrera Simon MD at 22:33 EDT Tel , Service support , Discharge Plan Triage Chief Complaint: Palpitations ED Provider: Sidney Florentino Dx/Rx/DC Orders Prescriptions: No Action metformin 500 MG tablet 500 mg PO BID RF: 0 cholecalciferol (vitamin D3) 2,000 UNIT capsule 2,000 unit PO DAILY RF: 0 Cosentyx Pen (2 Pens) 150 mg/mL pen injector 300 mg SUBCUT QMONTH RF: 0 Primary Care Provider: Niko Li
[2021-03-18 22:45] VITALS: BP 138/91; PULSE 64
[2021-03-18 22:59] LABS: Absolute Lymphocyte Count 2.52 X10^3/uL (0.83-4.51); Absolute Neutrophil Count 5.1 X10^3/uL (2.0-7.7); Basophil# 0.08 X10^3/uL; Basophil% 0.9 % (0-1); Eosinophil# 0.41 X10^3/uL; Eosinophils% 4.6 % (0-5); Hematocrit 44.8 % (40-54); Hemoglobin 15.4 g/dL (13.0-16.5); Lymphocyte # 2.52 X10^3/ul (0.83-4.51); Lymphocyte % 28.2 % (19-41); Mean Corp Hgb Conc 34.4 g/dL (32-36); Mean Corpuscular Hgb 29.6 pg (27.0-32.0); Mean Corpuscular Volume 86.2 fL (80-94); Mean Platelet Vol. 9.3 fl (6.2-12.0); Monocyte% 8.9 % (0-10); NRBC Flagged by Analyzer 0 % (0-5); Neutrophil # 5.08 X10^3/uL (2.7-7.7); Neutrophil % 56.8 % (47-70); Platelet Count 340 K/mm3 (150-450); RBC Distribution Width CV 12.2 % (11.6-14.6); RBC Distribution Width SD 38.4 fl (35.1-43.9); White Blood Count 8.9 K/mm3 (4.4-11.0)
[2021-03-18 23:12] LABS: D-Dimer Quantitative (DVT/PE) 0.31 FEU/ug/m (0.27-0.49)
[2021-03-18 23:14] LABS: Anion Gap 7 (5-15); BUN 20 mg/dL (7-18); BUN/Creat Ratio 12.3 RATIO (10-20); Calcium,Total 9.1 mg/dL (8.5-10.1); Chloride 104 mmol/L (98-107); Creatinine, Serum 1.62 mg/dL (0.70-1.30); EST Glomerular Filtration Rate 46 mL/min (>60); Est Glom Filt Rate - Afr Amer 56 mL/min (>60); Estimated Creatinine Clearance 48.19 ml/min; Glucose 268 mg/dL (74-106); Potassium 3.8 mmol/L (3.5-5.1); Sodium Level 137 mmol/L (136-145); Troponin-I HS 33 pg/mL (3.0-78.0)
[2021-03-19 01:17] VITALS: BP 120/72; PULSE 54; RESP 13; O2SAT 94
== END 2021-03-19 01:17 | disposition home or self-care (01) ==
PROVIDERS: Emergency Provider Student in an Organized Health Care Education/Training Program; PCP Family Medicine
DX: I49.1 Atrial premature depolarization (principal); E11.22 Type 2 diabetes mellitus with diabetic chronic kidney disease; N18.30 Chronic kidney disease, stage 3 unspecified; E66.9 Obesity, unspecified; Z68.34 Body mass index [BMI] 34.0-34.9, adult; Z79.84 Long term (current) use of oral hypoglycemic drugs
CPT/HCPCS: 71045; 80048; 84484; 85025; 85379; 93005; 99285; A4216

== ENCOUNTER 2022-02-18 12:05 | Emergency (ER) | payer OTHER, SELFPAY ==
[2022-02-18 12:05] VITALS: BP 151/96; PULSE 83; RESP 18; TEMP 36.5; O2SAT 97; BMI 31.8
--- NOTE | 2022-02-18 13:10 | EX.ED.GUMALE ---
HPI History of Present Illness Chief Complaint: Complaint Informant: patient Narrative Narrative: 66-year-old male presenting to the emergency room out of concern for urinary retention. He tells me that on Thursday he underwent cystoscopy and prostate biopsy with Dr. Howell in [place]. He states that he has had difficulty urinating since then. He notes urinary frequency of very small amounts but never feels like he empties his bladder. He states that he has experienced excruciating pain at the tip of his penis with the cystoscopy and a catheter in the past and is worried about having the pain again. [facility]LY [facility], [facility]–1983 PFS Medical History Diabetes Kidney disease Psoriasis Home Medications metformin 500 mg tablet,extended release 24 hr 500 mg PO BID diabetes 08/14/19 [History Last Taken Unknown] cholecalciferol (vitamin D3) 50 mcg (2,000 unit) capsule 2,000 unit PO DAILY 03/28/20 [History Last Taken Unknown] secukinumab 150 mg/mL subcutaneous pen injector (Cosentyx Pen 300 mg/2 Pens () 300 mg subcut QMONTH 03/18/21 [History Last Taken Unknown] Allergy/AdvReac Type Severity Reaction Status Date / Time No Known Allergies Allergy Verified 02/18/22 12:07 Surgical History History of cholecystectomy History of kidney removal Social History (Updated 02/18/22 @ 13:[address] Ricardo Breaux DO) current gender identity: male Smoking Status: Never smoker ROS ROS ED Constitutional Constitutional ED: Denies chills or weight loss Eyes Eyes: Denies change in vision or diplopia ENT ENT ED: Denies ear pain, rhinorrhea or sore throat Cardiovascular Cardiovascular: Denies chest pain, orthopnea, palpitations or racing heartbeat Respiratory/Chest Respiratory/Chest: Denies cough, dyspnea or orthopnea Gastrointestinal Gastrointestinal: Denies abdominal pain, diarrhea, nausea or vomiting Genitourinary Genitourinary ED: Reports urinary frequency and other Details: Urinary retention ; Denies dysuria or hematuria Musculoskeletal Musculoskeletal: Denies arthralgias or myalgias Integumentary Denies abscess or rash Neurologic Neurologic: Denies headache(s) or weakness Psychiatric Psychiatric: Denies anxiety, depression, suicidal ideation or suicidal thoughts Endocrine Endocrinology: Denies polydipsia, polyphagia or polyuria Allergic/Immunologic Allergic/Immunologic ED: Denies mouth swelling, tongue swelling or urticaria EXAM Physical Exam Const Vital Signs: 02/18/22 12:05 Temperature 97.7 F L Temperature Source Temporal Pulse Rate 83 Respiratory Rate 18 Blood Pressure 151/96 H Blood Pressure Mean 114 Pulse Ox 97 Oxygen Delivery Method Room Air Positive well nourished and well developed General Appearance ED: well developed HEENT Reports normocephalic, head/scalp atraumatic and moist mucous membranes Eyes PERRL and EOMs intact bilaterally Neck no lymphadenopathy, supple and no JVD Resp normal respiratory effort and clear to auscultation bilaterally Cardio regular rate, regular rhythm and no murmurs GI non-tender Palpation: soft and tender suprapubic; Negative for guarding or splenomegaly Back/Spine no CVA tenderness and normal ROM Extremity normal to inspection General Extremety ED: Negative for edema General Extremity: Negative for edema Neuro oriented x3 and CN's II-XII intact bilaterally Sensorium / Orientation: alert Motor Exam: strength 5/5 throughout Psych mental status grossly normal Mood & Affect: Negative for depressed or tearful Skin no rashes or lesions noted and no wounds MDM MDM MDM Narrative Medical decision making narrative: Mantilla catheter was placed with return of just over 1000 cc. Patient did receive a lidocaine Urojet and some morphine. Urinalysis demonstrates no overt infection. Patient was advised to follow-up with his urologist. Return if worsening or concerns. We did discuss Mantilla catheter care. Lab Data Labs: Laboratory Results - last 24 hr 02/18/22 14:00 Urine Color Yellow Urine Clarity Sl. Cloudy Urine pH 6.0 Ur Specific [place] 1.030 Urine Protein 100 H Urine Glucose (UA) 100 H Urine Ketones Negative Urine Occult Blood 250 H Urine Nitrite Negative Urine Bilirubin Negative Urine Urobilinogen Normal Ur Leukocyte Esterase Negative Urine RBC 10-25 SEEN Urine WBC 0-5 SEEN Ur Squamous Epith Cells 0-5 SEEN Urine Bacteria 0 SEEN Urine Mucus 0 SEEN Discharge Plan Triage Chief Complaint: Complaint ED Provider: Ricardo Breaux Dx/Rx/DC Orders Clinical Impression: Diabetes mellitus, type II, Chronic kidney disease, stage III (moderate), Acute urinary retention Instructions: ED Mantilla Catheter, Care, ED Urinary Retention, Male Prescriptions: No Action metformin 500 MG tablet 500 mg PO BID cholecalciferol (vitamin D3) 2,000 UNIT capsule 2,000 unit PO DAILY Cosentyx Pen (2 Pens) 150 mg/mL pen injector 300 mg SUBCUT QMONTH Primary Care Provider: Niko Li Referrals: Niko Li MD [Primary Care Provider] - Activity Restrictions/Additional Instructions: Please follow-up with your urologist. You need to call them and let them know that you had a catheter placed for urinary retention. Disposition Disposition: Home, Self Care
[2022-02-18] MEDS: Morphine 4 MG/ML Syringe IV (13:14)
[2022-02-18] MEDS: Lidocaine Jelly 2% 20 ML Syringe (URO-JET) 1 APPLIC TOPICAL (13:15)
--- NOTE | 2022-02-18 14:13 | ED.RN ---
URINARY CATHETER PLACED WITH MUCH DIFFICULTY. ATTEMPTED TO USE GUIDED IMAGERY TO HELP RELAX PT. 980 CC IMMEDIATE RETURN
[2022-02-18 14:18] LABS: Bacteria 0 SEEN /hpf (None Seen); Mucous, Urine 0 SEEN /hpf (<or=2+)
[2022-02-18 14:20] LABS: Color, Urine Yellow (Yellow); Glucose, Dipstick 100 mg/dl (Normal); Ketone-Dipstick Negative (Negative); Leukocyte Esterase-Dipstick Negative /ul (Negative); Nitrite-Dipstick Negative (Negative); Occult Blood-Urine 250 /ul (Negative); Protein-Dipstick 100 mg/dl (Negative); Urine Bilirubin Dipstick Negative (Negative); Urine Clarity Sl. Cloudy (Clear); Urine Urobilinogen Normal (Normal)
[2022-02-18 14:28] LABS: Red Blood Cells-Urine 10-25 SEEN /hpf (0-5); Squamous Epithelial Cells - UA 0-5 SEEN /hpf (0-5); White Blood Cells 0-5 SEEN /hpf (0-5)
[2022-02-18 15:30] VITALS: BP 152/100
== END 2022-02-18 15:34 | disposition home or self-care (01) ==
PROVIDERS: Emergency Provider Emergency Medicine; PCP Family Medicine; Visit Provider Emergency Medicine
DX: E11.22 Type 2 diabetes mellitus with diabetic chronic kidney disease (principal); N18.30 Chronic kidney disease, stage 3 unspecified; R33.8 Other retention of urine; Z79.84 Long term (current) use of oral hypoglycemic drugs
CPT/HCPCS: 81001; 96374; 99283; A4216

== ENCOUNTER 2023-03-31 10:00 | Emergency (ER) | payer OTHER, SELFPAY ==
[2023-03-31 10:01] VITALS: BP 158/98; PULSE 62; RESP 18; TEMP 36.3; O2SAT 98; BMI 36.1
--- NOTE | 2023-03-31 10:26 | EX.ED.DYSGE1 ---
HPI History of Present Illness Chief Complaint: Palpitations Informant: patient Onset/Context/Timing Onset: Days Context: Gradual Onset Timing: Continuous Quality: Flipping Location: Chest Worsened by: Nothing Relieved by: Taking a brisk walk Narrative Narrative: Patient presents with palpitations that have been getting worse over the past couple days. Patient states that it came on gradually and have been getting progressively worse. Patient describes it as a flipping sensation in his chest. Patient states in the past when he has had this it would get better after he took a brisk walk. Patient states nothing makes his symptoms worse. Patient denies any chest pain. Patient denies any shortness of breath. Patient denies any nausea or vomiting. [facility] Medical History Diabetes Kidney disease Psoriasis Home Medications metformin 500 mg tablet,extended release 24 hr 500 mg PO BID diabetes 08/14/19 [History Last Taken Unknown] cholecalciferol (vitamin D3) 50 mcg (2,000 unit) capsule 2,000 unit PO DAILY 03/28/20 [History Last Taken Unknown] secukinumab 150 mg/mL subcutaneous pen injector (Cosentyx Pen 300 mg/2 Pens () 300 mg subcut QMONTH 03/18/21 [History Last Taken Unknown] Allergy/AdvReac Type Severity Reaction Status Date / Time No Known Allergies Allergy Verified 03/31/23 10:01 Surgical History History of cholecystectomy History of kidney removal Social History Smoking Status: Never smoker ROS ROS ED Constitutional Constitutional ED: Denies chills or fever(s) Eyes Eyes: Denies blurry vision or change in vision ENT ENT ED: Denies rhinorrhea or sore throat Cardiovascular Cardiovascular: Reports palpitations; Denies chest pain Respiratory/Chest Respiratory/Chest: Denies cough or dyspnea Gastrointestinal Gastrointestinal: Denies nausea or vomiting Genitourinary Genitourinary ED: Denies dysuria or hematuria Musculoskeletal Musculoskeletal: Denies back pain or neck pain Integumentary Denies abscess or rash Neurologic Neurologic: Denies headache(s) or weakness Allergic/Immunologic Allergic/Immunologic ED: Denies mouth swelling or urticaria EXAM Physical Exam Const Vital Signs: 03/31/23 10:01 03/31/23 10:01 Temperature 97.4 F L Temperature Source Temporal Pulse Rate 62 Respiratory Rate 18 Respiratory Effort Normal Blood Pressure 158/98 H Blood Pressure Mean 118 Pulse Ox 98 Oxygen Delivery Method Room Air Positive well nourished and well developed General Appearance ED: well developed and NAD HEENT Reports moist mucous membranes Neck supple and no JVD Chest Wall inspection of chest normal and palpation of chest normal Resp normal respiratory effort and clear to auscultation bilaterally Cardio regular rate and regular rhythm GI non-tender and non-distended Palpation: soft Extremity normal to inspection General Extremety ED: Negative for edema or tenderness General Extremity: Negative for edema Neuro oriented x3, CN's II-XII intact bilaterally and no sensory deficits noted Sensorium / Orientation: alert Motor Exam: strength 5/5 throughout Psych mental status grossly normal MDM MDM MDM Narrative Medical decision making narrative: Differential diagnosis includes cardiac dysrhythmia, cardiac ischemia, electrolyte abnormality, dehydration, pneumonia, pneumothorax, and anxiety. EKG will be obtained to assess for cardiac dysrhythmia and cardiac ischemia. Chest x-ray will be obtained to assess for pneumonia and pneumothorax. CBC will be obtained to assess for leukocytosis and anemia. Basic metabolic profile will be obtained to assess for electrolyte abnormality and renal function. High-sensitivity troponin will be obtained to assess for cardiac ischemia. Lab Data Attestation: I reviewed the patient's lab results. Lab results narrative: CBC was reviewed and was within normal limits. Basic metabolic profile was reviewed. Creatinine was slightly elevated at 1.50 glucose was slightly elevated at 246. The remainder was within normal limits. High-sensitivity troponin was reviewed and was normal at 65. Labs: Laboratory Results - last 24 hr 03/31/23 10:18 WBC 8.4 RBC 5.26 Hgb 15.3 Hct 45.5 MCV 86.5 MCH 29.1 MCHC 33.6 RDW Std Deviation 38.9 RDW Coeff of Nirali 12.2 Plt Count 313 MPV 8.8 Immature Gran % (Auto) 0.400 Neut % (Auto) 67.6 Lymph % (Auto) 18.4 L Iron % (Auto) 9.8 Eos % (Auto) 2.6 Baso % (Auto) 1.2 H Absolute Neuts (auto) 5.7 Absolute Lymphs (auto) 1.55 Nucleated RBC % 0 Sodium 139 Potassium 4.0 Chloride 106 Carbon Dioxide 27.0 Anion Gap 6 BUN 13 Creatinine 1.50 H Estim Creat Clear Calc 47.50 Est GFR (MDRD) Af Amer 60 Est GFR (MDRD) Non-Af 50 L BUN/Creatinine Ratio 8.7 L Glucose 246 H Calcium 9.1 Troponin I High Sens 65 Radiography Chest X-Ray - ED: 2 View, Read by ED Physician, Read by Radiologist and No Acute Disease Diagnostic Testing: Clinical Impression(s) from Imaging Studies Chest X-Ray 03/31/23 11:00 IMPRESSION: No acute abnormality is seen. Electronically Signed: Mookie Alvarenga MD at 11:20 EDT , PA and lateral chest x-ray was obtained. There are 2 views. On my independent interpretation, lung frias are clear. There is normal cardiac silhouette. Bony thorax is normal. There is no acute process noted. Radiologist also interpreted the x-ray and agrees. EKG Initial EKG: Attestation: I personally reviewed and interpreted this EKG as follows: Interpretation: Sinus Rhythm (61) and Non-Specific ST Changes Comments: EKG was obtained. On my independent interpretation, it showed a normal sinus rhythm with a rate of 61. [place] interval, QRS interval, and QTc intervals were all normal. [place] was normal. There are nonspecific ST-T wave changes. Prior EKG tracings: available for review Prior: Unchanged (03/18/2021) Treatment and Re-Evaluation :: Patient is feeling better on reevaluation. Patient was advised of his findings. Patient was instructed to follow-up with his primary care physician in 5 to 7 days for further evaluation. Patient understood and was agreeable with the plan. All questions were answered. Discharge Plan Triage Chief Complaint: Palpitations ED Provider: Anthony Amado Dx/Rx/DC Orders Clinical Impression: Palpitations, Diabetes mellitus, type II Instructions: ED Palpitations Prescriptions: No Action metformin 500 MG tablet 500 mg PO BID cholecalciferol (vitamin D3) 2,000 UNIT capsule 2,000 unit PO DAILY Cosentyx Pen (2 Pens) 150 mg/mL pen injector 300 mg SUBCUT QMONTH Primary Care Provider: Niko Li Referrals: Niko Li MD [Primary Care Provider] - 5-7 Days Disposition Disposition: Home, Self Care
--- NOTE | 2023-03-31 10:40 | EKG12_ITS ---
Test Reason : PALPITATIONS Blood Pressure : / mmHG Vent. Rate : 061 BPM Atrial Rate : 061 BPM P-R Int : 186 ms QRS Dur : 102 ms QT Int : 384 ms P-R-T Axes : 000 093 006 degrees QTc Int : 386 ms Normal sinus rhythm Rightward axis T wave abnormality, consider lateral ischemia Abnormal ECG Confirmed by ZINA PERDOMO, GAGANDEEP ([id number]), photography editor VINH YIN ([id number]) on 04/01/2023 6:28:57 AM Referred By: Confirmed By:GAGANDEEP IZAGUIRRE MD
--- NOTE | 2023-03-31 11:00 | RAD_ITS ---
STUDY: X-RAY CHEST REASON FOR EXAM: Male, 67 years old. Palpitations TECHNIQUE: PA and lateral views of the chest. COMPARISON: Comparison is made with prior study dated March 18, 2021. FINDINGS: EKG electrodes are seen. The lungs are clear and expanded. There is no demonstrated pleural abnormality. Normal size heart. Normal mediastinum and jerel. Normal visualized pulmonary arteries. There is atherosclerotic tortuosity of the aortic arch and descending thoracic aorta. There are mild degenerative changes of the visualized thoracic spine. Normal visualized ribs, clavicles, and shoulders. There is no demonstrated abnormality of the visualized soft tissue structures of the upper abdomen. RAD/Chest PA and Lateral IMPRESSION: No acute abnormality is seen. Electronically Signed: Mookie Alvarenga MD at 11:20 EDT ,
[2023-03-31 11:02] LABS: Absolute Lymphocyte Count 1.55 X10^3/uL (0.83-4.51); Absolute Neutrophil Count 5.7 X10^3/uL (2.0-7.7); Basophil% 1.2 % (0-1); Eosinophil# 0.22 X10^3/uL; Eosinophils% 2.6 % (0-5); Hematocrit 45.5 % (40-54); Hemoglobin 15.3 g/dL (13.0-16.5); Lymphocyte # 1.55 X10^3/ul (0.83-4.51); Lymphocyte % 18.4 % (19-41); Mean Corp Hgb Conc 33.6 g/dL (32-36); Mean Corpuscular Hgb 29.1 pg (27.0-32.0); Mean Corpuscular Volume 86.5 fL (80-94); Mean Platelet Vol. 8.8 fl (6.2-12.0); Monocyte# 0.83 X10^3/uL; Monocyte% 9.8 % (0-10); NRBC Flagged by Analyzer 0 % (0-5); Neutrophil # 5.71 X10^3/uL (2.7-7.7); Neutrophil % 67.6 % (47-70); Platelet Count 313 K/mm3 (150-450); RBC Distribution Width CV 12.2 % (11.6-14.6); RBC Distribution Width SD 38.9 fl (35.1-43.9); Red Blood Count 5.26 M/mm3 (4.6-6.2); White Blood Count 8.4 K/mm3 (4.4-11.0)
[2023-03-31 11:08] LABS: Anion Gap 6 (5-15); BUN 13 mg/dL (7-18); BUN/Creat Ratio 8.7 RATIO (10-20); Calcium,Total 9.1 mg/dL (8.5-10.1); Chloride 106 mmol/L (98-107); EST Glomerular Filtration Rate 50 mL/min (>60); Est Glom Filt Rate - Afr Amer 60 mL/min (>60); Glucose 246 mg/dL (74-106); Sodium Level 139 mmol/L (136-145); Troponin-I HS 65 pg/mL (3.0-78.0)
[2023-03-31 13:24] VITALS: BP 152/99; PULSE 72; RESP 15; O2SAT 98
== END 2023-03-31 13:24 | disposition home or self-care (01) ==
PROVIDERS: Emergency Provider Emergency Medicine; PCP Family Medicine; Visit Provider Emergency Medicine
DX: R00.2 Palpitations (principal); E11.9 Type 2 diabetes mellitus without complications; Z79.84 Long term (current) use of oral hypoglycemic drugs
CPT/HCPCS: 71046; 80048; 84484; 85025; 93005; 99284

== ENCOUNTER 2024-07-21 16:03 | Emergency (ER) | payer MEDICARE, OTHER, SELFPAY ==
[2024-07-21 16:04] VITALS: BP 161/101; PULSE 72; RESP 16; TEMP 36.7; O2SAT 95; BMI 34.7
[2024-07-21 17:34] VITALS: BP 149/110
--- NOTE | 2024-07-21 18:16 | EDS_ITS ---
HPI History of Present Illness Chief Complaint: Hypertension Detail of Chief Complaint: Elevated blood pressure. No history of hypertension. Informant: patient Onset/Context/Timing Onset: Today Context: Gradual Onset Timing: Intermittent Narrative Narrative: 68-year-old male history of elevated blood sugar. On metformin. No history of hypertension. Blood pressure was elevated today. He denies any headache or chest pain. He denies any shortness of breath. No leg pain or swelling. Prior similar symptoms: No Recent Illness/Hospitalization: No PFSH PFSH Medical History Psoriasis Kidney disease Diabetes Home Medications ?Medication ?Instructions ?Recorded ?Last Taken ?Type metformin 500 mg tablet,extended 500 mg PO BID diabete s 08/14/19 Unknown History release 24 hr cholecalciferol (vitamin D3) 50 2,000 unit PO DAILY Unknown History mcg (2,000 unit) capsule Allergy/AdvReac Type Severity Reaction Status Date / Time No Known Allergies Allergy Verified 07/21/24 16:06 Family History no significant family his Surgical History History of cholecystectomy History of kidney removal Social History Smoking Status: Never smoker ROS ROS ED ROS Narrative Denies recent illness. Denies headache or chest pain. Constitutional Constitutional ED: Denies chills or fever(s) Eyes Eyes: Denies blurry vision ENT ENT ED: Denies ear pain Cardiovascular Cardiovascular: Denies chest pain Respiratory/Chest Respiratory/Chest: Denies cough Gastrointestinal Gastrointestinal: Denies abdominal pain Genitourinary Genitourinary ED: Denies dysuria Musculoskeletal Musculoskeletal: Denies arthralgias Integumentary Denies abscess Neurologic Neurologic: Denies headache(s) Psychiatric Psychiatric: Denies anxiety Endocrine Endocrinology: Denies cold intolerance Hematologic/Lymphatic Hematologic/Lymphatic: Reports none Allergic/Immunologic Allergic/Immunologic ED: Denies mouth swelling, tongue swelling or urticaria EXAM Physical Exam Narrative Exam Narrative: Well-appearing 68-year-old male. Vital signs are stable afebrile. No acute distress. Initial blood pressure 161/101. Patient does not look septic denies any distress. He currently has no symptoms. H EENT exam pupils round reactive light. Extra motions are intact. No facial droop. Normal speech. Neck nontender no JVD. Lungs clear to auscultation bilateral. Heart regular rhythm rate about 70 no murmur. Chest wall ribs nontender. Abdomen soft nontender. Moving moving all 4 extremities. 5 out of 5 astronomy department chair strength. Dorsi plantarflexion intact. Nontender no edema. Normal range of motion. Normal strength. Neurologic exam normal. NIH 0. Fingertip to nose within normal limits. No drift of either upper or lower extremities. Normal speech. Benign exam. Const Vital Signs: 07/21/24 16:04 07/21/24 17:34 Temperature 98.1 F Temperature Source Oral Pulse Rate 72 Respiratory Rate 16 Blood Pressure 161/101 H 149/110 H Blood Pressure Mean 121 123 Pulse Ox 95 Oxygen Delivery Method Room Air Positive well nourished and well developed; Negative for cachectic, contractures or unkempt General Appearance ED: well developed and NAD; Negative for unkempt, cachectic, contractures, cyanotic, diaphoretic or pallor Nutritional Appearance: Negative for cachectic HEENT Reports moist mucous membranes Negative for trauma or tenderness Eyes PERRL and EOMs intact bilaterally General Eye ED: Negative for pale conjunctiva Neck no lymphadenopathy, supple and no JVD Chest Wall inspection of chest normal and palpation of chest normal Resp normal respiratory effort and clear to auscultation bilaterally Effort and Inspection: Negative for retractions Auscultation: Negative for rales, rhonchi or wheezes Cardio regular rate, regular rhythm, S1 normal heart sound, S2 normal heart sound and no murmurs GI normal to inspection, nondistended, normoactive bowel sounds, non-tender, non- distended and no masses Palpation: soft; Negative for tender, guarding or rebound tenderness present Back/Spine no CVA tenderness General Back: Negative for CVA tenderness Cervical Spine: Negative for cervical spine tenderness Thoracic Spine / Upper Back: Negative for thoracic spinal tenderness Lumbar Spine / Lower Back: Negative for lumbar spinal tenderness Extremity normal to inspection General Extremety ED: Negative for edema or tenderness General Extremity: Negative for edema Neuro oriented x3 and CN's II-XII intact bilaterally Sensorium / Orientation: alert; Negative for orientation impaired, lethargic or stuporous Motor Exam: strength 5/5 throughout Psych mental status grossly normal Appearance: Negative for unkempt Attitude: No agitated Mood & Affect: Negative for depressed, anxious or tearful Skin no rashes or lesions noted, no wounds and skin turgor normal General Skin Exam: elasticity normal; Negative for jaundice or pallor Lesions: No lesion noted Rashes: No rashes noted Trauma: Negative for abrasion Wounds: Negative for wounds noted MDM MDM MDM Narrative Medical decision making narrative: 68-year-old male elevated blood pressure. No history of hypertension. He showed me recent labs he has had he has some mild renal insufficiency with creatinine 1.44 as her outpatient labs. His prior creatinine in January was around 1.37. We discussed options he did not want to start blood pressure medication at this time. He will log his blood pressure twice a day. He is kena ointment see his primary care physician next week to determine if he needs to be started on blood pressure medication or not. He and I are both comfortable with the plan. History & Record Review Discussion w/independent historian: Patient Discharge Plan Triage Chief Complaint: Hypertension ED Provider: Chito Stringer Dx/Rx/DC Orders Clinical Impression: Elevated BP without diagnosis of hypertension Instructions: ED Hypertension, To Be Confirmed Prescriptions: No Action metformin 500 MG tablet 500 mg PO BID cholecalciferol (vitamin D3) 2,000 UNIT capsule 2,000 unit PO DAILY Primary Care Provider: Niko Li Referrals: Niko Li MD [Primary Care Provider] - [facility] appointment Activity Restrictions/Additional Instructions: Call and follow-up your primary care physician. If your blood pressure consistently is above 140 or the lower number is consistently above 90 they may want to start you on blood pressure medication. I would check your blood pressure twice a day in the morning when you are calm and relaxed and after dinner or before bedtime when you are calm and relaxed. Log those blood pressures when you go see your doctor next week for your scheduled appointment showing 2 your physician. You and he can then make a determination if you need to be started on blood pressure medication. We do not need to do anything emergently tonight. Print Language: [place]ijani Disposition Disposition: Home, Self Care
[2024-07-21 18:32] VITALS: BP 145/97; PULSE 75; RESP 18; TEMP 36.3; O2SAT 98
== END 2024-07-21 18:36 | disposition home or self-care (01) ==
LOC: ED 18:23
PROVIDERS: Emergency Provider Emergency Medicine; PCP Family Medicine; Visit Provider Emergency Medicine
DX: R03.0 Elevated blood-pressure reading, without diagnosis of hypertension (principal); E11.9 Type 2 diabetes mellitus without complications; Z79.84 Long term (current) use of oral hypoglycemic drugs
CPT/HCPCS: 99282